=== PATIENT | female | born 1985 | race Caucasian/White ===

== ENCOUNTER 2017-03-27 11:01 | Emergency (ER) | payer OTHER ==
[~2017-03-27] VITALS: Ht 165.1 cm; Wt 64.0 kg
[~2017-03-27 11:01] MED LIST: ALBUAER19 INH; CITA40TA4 PO; CLR10 PO; CTP/1 PO; CYAN10004 PO; DICY10CA12 PO; FLUT220A INH; FLV1 PO; GABA600T PO; METH10SO PO; THIA100T11 PO; VNCS125 PO
[2017-03-27 11:06] VITALS: Ht 165.1 cm; Wt 64.0 kg
[2017-03-27] MEDS ORDERED: VNTHFA/IN INH (11:20)
[2017-03-27] MEDS ORDERED: SNG10 PO (11:22)
[2017-03-27] MEDS ORDERED: TPM100 PO (11:22)
[2017-03-27] MEDS ORDERED: EFF75 PO (11:22)
[2017-03-27] MEDS ORDERED: CYAN10005 PO (11:23)
[2017-03-27] MEDS ORDERED: SODIUM CHLORIDE 0.9% 1000ML 1,000 ML IV STA (11:31)
[2017-03-27] MEDS ORDERED: KETOROLAC TROMETHAMINE 15 MG/ML VIAL IV STA (11:35)
--- NOTE | 2017-03-27 11:42 | EMERGENCY ROOM VISIT NOTE ---
History First contact with patient: 11:23 Chief Complaint: FLANK PAIN Stated Complaint: RIGHT SIDE PAIN History of Present Illness The patient is a 31 year old female who presents to the Emergency Room via private vehicle with complaints of "right-sided pain". The patient states that she woke this morning around 4 AM with abrupt onset of right flank pain. She states she's never had this before, and feels as though she cannot urinate. She rates the pain as an 8-9/10. She took 600 mg of ibuprofen around 7 AM. She denies any chest pain, shortness of breath, fevers, chills, chance of . She denies any dysuria or urinary symptoms. She notes that when she takes a deep breath there is pain in the right flank. Review of Systems A complete 10-point Review of Systems was discussed with the patient, with pertinent positives and negatives listed in the History of Present Illness. All remaining Review of Systems questions can be considered negative unless otherwise specified. 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 (11) MTHFR mutation (12) Tobacco abuse Surgical Problems: (1) H/O breast implant (2) Hx of cholecystectomy Family History Blood clots AUNT PGM Diabetes mellitus MGF PGF FH: cancer FH: lung disease FHx: gallbladder disease Social History Smoking Status: Current Every Day Smoker Alcohol Use: heavy Drug Use: heroin, marijuana, other Marital Status: single Housing Status: lives alone Occupation Status: unemployed Current/Historical Medications Scheduled Cyanocobalamin (Vitamin B-12), 1,000 MCG PO DAILY Montelukast Sod (Montelukast Sodium), 10 MG PO DAILY Topiramate (Topiramate), 100 MG PO DAILY Venlafaxine Hcl (Effexor), 75 MG PO TID Scheduled PRN Albuterol Hfa (Ventolin Hfa), 2 PUFFS INH QID PRN for SOB/Wheezing Physical Exam Vital Signs Date Time Temp Pulse Resp B/P (MAP) Pulse Ox O2 Delivery O2 Flow Rate FiO2 03/27/17 13:37 36.9 84 18 120/86 98 03/27/17 12:40 84 18 116/74 98 03/27/17 11:06 36.9 102 20 116/80 98 Physical Exam VITAL SIGNS - Vital signs and nursing notes were reviewed. Stable. GENERAL -31-year-old female appearing her stated age who is in no acute distress. Communicates well with provider and answers questions appropriately. SKIN - Without rashes. No petechial rashes. HEAD - NC/AT. LUNGS - Chest wall symmetric without accessory muscle use, intercostals retractions, or central cyanosis. Normal vesicular breath sounds CTA B/L. No wheezes, rales, or rhonchi appreciated. CARDIAC - RRR with S1/S2. No murmur, rubs, or gallops appreciated. ABDOMEN - Abdominal contour normal without pulsations or visible masses. BS normoactive all four quadrants. No tenderness, palpable masses, hepatosplenomegaly, or ascites noted. There is right CVA tenderness. Medical Decision & Procedures ER Provider Diagnostic Interpretation: ABD/PELVIS WITHOUT FOR STONE CLINICAL HISTORY: 31 years-old Female presenting with R flank pain, cannot void, no history of renal calculi, no hematuria. TECHNIQUE: Multidetector CT of the abdomen and pelvis was performed without the use of intravenous contrast. IV contrast: None. A dose lowering technique was used consistent with the principles of ALARA (as low as reasonably achievable). COMPARISON: 07/09/2015. CT DOSE (mGy.cm): The estimated cumulative dose is 621.76 mGycm. 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 Lung bases: Stable solid 5 mm nodule at the right lung base. Stable solid subpleural 7 mm nodule in the left lower lobe. No new pulmonary nodule. Normal heart size. No pericardial or pleural effusion. Liver: Normal morphology. Density consistent with hepatic steatosis. Biliary: No gross biliary ductal dilatation allowing for noncontrast technique. Gallbladder surgically absent. Pancreas: Normal noncontrast appearance. Spleen: Top normal in size. Adrenal glands: Normal noncontrast appearance. Kidneys and ureters: No nephrolithiasis. No hydronephrosis. Evaluation of the ureters is limited given the possibility of intra-abdominal fat. Bladder: Incompletely evaluated secondary to underdistention. Pelvic organs: An intrauterine device is in place. Normal noncontrast appearance of the ovaries. Bowel: Normal appendix. No bowel obstruction. Overall limited evaluation given the absence of oral and intravenous contrast. Peritoneal cavity: No free fluid or intraperitoneal gas. Lymph nodes: No gross lymphadenopathy allowing for noncontrast technique. Vasculature: Normal noncontrast appearance. Abdominal wall: Normal. Musculoskeletal: Normal. IMPRESSION: 1. Hepatic steatosis. Correlate with liver function tests exclude steatohepatitis. 2. No nephrolithiasis. 3. No appendicitis. Electronically signed by: Ramiro Mensah M.D. 03/27/2017 12:45 PM Dictated Date/Time: 03/27/2017 12:39 PM Laboratory Results 03/27/17 11:47 Red Blood Count 3.93, Mean Corpuscular Volume 96.9, Mean Corpuscular Hemoglobin 33.3, Mean Corpuscular Hemoglobin Concent 34.4, Mean Platelet Volume 11.8, Neutrophils (%) (Auto) 65.8, Lymphocytes (%) (Auto) 26.5, Monocytes (%) (Auto) 6.1, Eosinophils (%) (Auto) 0.9, Basophils (%) (Auto) 0.5, Neutrophils # (Auto) 4.20, Lymphocytes # (Auto) 1.69, Monocytes # (Auto) 0.39, Eosinophils # (Auto) 0.06, Basophils # (Auto) 0.03 03/27/17 11:47 Test 03/27/17 11:30 03/27/17 11:47 Urine Color DK YELLOW Urine Appearance CLOUDY (CLEAR) Urine pH 8.0 (4.5-7.5) Urine Specific [place] 1.027 (1.000-1.030) Urine Protein NEG (NEG) Urine Glucose (UA) NEG (NEG) Urine Ketones TRACE (NEG) Urine Occult Blood NEG (NEG) Urine Nitrite NEG (NEG) Urine Bilirubin NEG (NEG) Urine Urobilinogen NEG (NEG) Urine Leukocyte Esterase TRACE (NEG) Urine WBC (Auto) 1-5 /hpf (0-5) Urine RBC (Auto) 0-4 /hpf (0-4) Urine Hyaline Casts (Auto) 5-10 /lpf (0-5) Urine Epithelial Cells (Auto) >30 /lpf (0-5) Urine Bacteria (Auto) NEG (NEG) Urine Test NEG (NEG) White Blood Count 6.38 K/uL (4.8-10.8) Red Blood Count 3.93 M/uL (4.2-5.4) Hemoglobin 13.1 g/dL (12.0-16.0) Hematocrit 38.1 % (37-47) Mean Corpuscular Volume 96.9 fL (80-100) Mean Corpuscular Hemoglobin 33.3 pg (25-34) Mean Corpuscular Hemoglobin Concent 34.4 g/dl (32-36) Platelet Count 128 K/uL (130-400) Mean Platelet Volume 11.8 fL (7.4-10.4) Neutrophils (%) (Auto) 65.8 % Lymphocytes (%) (Auto) 26.5 % Monocytes (%) (Auto) 6.1 % Eosinophils (%) (Auto) 0.9 % Basophils (%) (Auto) 0.5 % Neutrophils # (Auto) 4.20 K/uL (1.4-6.5) Lymphocytes # (Auto) 1.69 K/uL (1.2-3.4) Monocytes # (Auto) 0.39 K/uL (0.11-0.59) Eosinophils # (Auto) 0.06 K/uL (0-0.5) Basophils # (Auto) 0.03 K/uL (0-0.2) RDW Standard Deviation 53.9 fL (36.4-46.3) RDW Coefficient of Variation 15.2 % (11.5-14.5) Immature Granulocyte % (Auto) 0.2 % Immature Granulocyte # (Auto) 0.01 K/uL (0.00-0.02) Anion Gap 9.0 mmol/L (3-11) Est Creatinine Clear Calc Drug Dose 94.7 ml/min Estimated GFR () 119.5 Estimated GFR (Non- 103.1 BUN/Creatinine Ratio 7.3 (10-20) Calcium Level 8.1 mg/dl (8.5-10.1) Total Bilirubin 0.5 mg/dl (0.2-1) Aspartate Amino Transf (AST/SGOT) 180 U/L (15-37) Alanine Aminotransferase (ALT/SGPT) 173 U/L (12-78) Alkaline Phosphatase 23 U/L (45-117) Total Protein 7.2 gm/dl (6.4-8.2) Albumin 3.5 gm/dl (3.4-5.0) Globulin 3.7 gm/dl (2.5-4.0) Albumin/Globulin Ratio 0.9 (0.9-2) Medications Administered Medications (Trade) Dose Ordered Sig/Viky Route Start Time Stop Time Status Last Admin Dose Admin Sodium Chloride 1,000 ml @ 999 mls/hr Q1H1M STAT IV 03/27/17 11:31 03/27/17 12:31 DC 03/27/17 12:38 999 MLS/HR Ketorolac Tromethamine (Toradol Inj) 15 mg NOW STAT IV 03/27/17 11:35 03/27/17 11:38 DC 03/27/17 12:37 15 MG Medical Decision Patient was seen and evaluated as above. She presents to us today with right flank pain/right posterior back pain and decreased urine output. This is certainly concerning for that of renal calculi, and decision was made to obtain a CT scan of the abdomen and pelvis without IV contrast. Results as above. She did not want any opiates for pain, and oriented had ibuprofen earlier today. I spoke closely with her pharmacist, and decided to give the patient 1 time dose of 15 mg of Toradol. She was informed the results of the CAT scan which showed that she had hepatic steatosis, and her liver function is actually improved. She does have hepatitis C from she notes IV drug use. On reexamination I do suspect that because it is reproducible with palpation that she may be experiencing a right thoracic or lumbar spinous musculature strain. I do not suspect she is experiencing OK or PE. Her vital signs are stable. At this time she appears to be from patient management, and is to follow with her family doctor regarding today's visit. Blood work does not show any concerning findings. Her platelets are slightly low. No concerning leukocytosis. Slight anemia noted. Metabolic workup reveals potassium and calcium low. Her AST and ALTs and alkaline phosphatase were all elevated/alkaline phosphatase low. Urine reveals no evidence of infection. Prevacid test is negative. She notes she feels couple using [id number] medication for her pain. She is to follow with her family doctor. She is to return if worsening. She was educated upon management, educated upon worrisome symptoms in which to return, had desponded faith, and was discharged home in good condition. Case was discussed with the attending physician. In evaluation treatment this patient following differential diagnoses were entertained: Pyelonephritis, renal calculi, hepatic steatosis, infection, muscle strain, among others. Impression Primary Impression: Right flank pain Additional Impression: Hypokalemia Departure Information Dispostion Home / Self-Care Condition GOOD Referrals Parag Burrell M.D. (PCP) Patient Instructions ED Hypocalcemia, Hypokalemia Dc, [facility] Additional Instructions You have been treated in the Emergency Department your right sided flank/back pain. Laboratory results and imaging studies have ruled out any emergent causes for your pain which would warrant admission or surgery. For pain control, you can use the following [id number] medicines (if >12 yo): - Regular strength (200 mg/tab) Advil (ibuprofen) 1-2 tabs every 4-6 hours as needed. Do not exceed a dose of 3200 mg per day. Drink plenty of water and stay well hydrated. As with any trip to the Emergency Department, you should follow-up with your Primary Care Provider from today's visit. Please follow-up regarding the findings as we discussed today Return to the emergency department if your symptoms persist despite treatment plan outlined above or if the following symptoms occur: increased fevers, chills , worsening nausea/vomiting, blood in your stool or urine. Please refer to the attached handout regarding foods high in potassium and calcium as those were found to be low today. Please return with any new/concerning symptoms. Problem Qualifiers
[2017-03-27 11:53] LABS: URINE APPEARANCE CLOUDY (CLEAR); URINE BILIRUBIN NEG (NEG); URINE COLOR DK YELLOW; URINE EPITHELIAL CELL AUTO >30 /lpf (0-5); URINE NITRITE NEG (NEG); URINE SPECIFIC GRAVITY 1.027 (1.000-1.030); UROBILINOGEN NEG (NEG); ZZUR CULT IF INDIC CLEAN CATCH NO
[2017-03-27 12:02] LABS: MANUAL MICROSCOPIC REQUIRED? NO; REVIEW REQ? NO; SULFASALICYLIC ACID NEG (NEG)
[2017-03-27 12:03] LABS: BASO % 0.5 %; BASO ABS # 0.03 K/uL (0-0.2); COMPLETE YES; EOS % 0.9 %; HEMATOCRIT 38.1 % (37-47); IG% 0.2 %; LYMPH % 26.5 %; LYMPH ABS # 1.69 K/uL (1.2-3.4); MEAN CELL VOLUME 96.9 fL (80-100); MEAN CORPUSCULAR HEMOGLOBIN 33.3 pg (25-34); MEAN CORPUSCULAR HGB CONC 34.4 g/dl (32-36); MEAN PLATELET VOLUME 11.8 fL (7.4-10.4); MONO % 6.1 %; NEUT % 65.8 %; PLATELET COUNT 128 K/uL (130-400); RED BLOOD COUNT 3.93 M/uL (4.2-5.4); WHITE BLOOD COUNT 6.38 K/uL (4.8-10.8)
[2017-03-27 12:26] LABS: BUN/CREATININE RATIO 7.3 (10-20); CALCIUM 8.1 mg/dl (8.5-10.1); CREATININE 0.76 mg/dl (0.60-1.20); POTASSIUM 3.1 mmol/L (3.5-5.1)
[2017-03-27 12:29] LABS: ALB/GLOB RATIO 0.9 (0.9-2)
--- NOTE | 2017-03-27 12:47 | DIAGNOSTIC IMAGING REPORT ---
ABD/PELVIS WITHOUT FOR STONE CLINICAL HISTORY: 31 years-old Female presenting with R flank pain, cannot void, no history of renal calculi, no hematuria. TECHNIQUE: Multidetector CT of the abdomen and pelvis was performed without the use of intravenous contrast. IV contrast: None. A dose lowering technique was used consistent with the principles of ALARA (as low as reasonably achievable). COMPARISON: 07/09/2015. CT DOSE (mGy.cm): The estimated cumulative dose is 621.76 mGycm. 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 Lung bases: Stable solid 5 mm nodule at the right lung base. Stable solid subpleural 7 mm nodule in the left lower lobe. No new pulmonary nodule. Normal heart size. No pericardial or pleural effusion. Liver: Normal morphology. Density consistent with hepatic steatosis. Biliary: No gross biliary ductal dilatation allowing for noncontrast technique. Gallbladder surgically absent. Pancreas: Normal noncontrast appearance. Spleen: Top normal in size. Adrenal glands: Normal noncontrast appearance. Kidneys and ureters: No nephrolithiasis. No hydronephrosis. Evaluation of the ureters is limited given the possibility of intra-abdominal fat. Bladder: Incompletely evaluated secondary to underdistention. Pelvic organs: An intrauterine device is in place. Normal noncontrast appearance of the ovaries. Bowel: Normal appendix. No bowel obstruction. Overall limited evaluation given the absence of oral and intravenous contrast. Peritoneal cavity: No free fluid or intraperitoneal gas. Lymph nodes: No gross lymphadenopathy allowing for noncontrast technique. Vasculature: Normal noncontrast appearance. Abdominal wall: Normal. Musculoskeletal: Normal. IMPRESSION: 1. Hepatic steatosis. Correlate with liver function tests exclude steatohepatitis. 2. No nephrolithiasis. 3. No appendicitis. Electronically signed by: Ramiro Mensah M.D. 03/27/2017 12:45 PM Dictated Date/Time: 03/27/2017 12:39 PM
[2017-03-27 13:37] VITALS: BP 120/86; PULSE 84; TEMP 36.9; O2SAT 98
== END 2017-03-27 13:38 | disposition home or self-care (01) ==
LOC: C.EDB 11:02 → C.EDC 13:38
DX: R10.9 Unspecified abdominal pain (principal); E87.6 Hypokalemia; F90.9 Attention-deficit hyperactivity disorder, unspecified type; F10.10 Alcohol abuse, uncomplicated; F31.9 Bipolar disorder, unspecified; F11.10 Opioid abuse, uncomplicated; Z86.718 Personal history of other venous thrombosis and embolism; F12.10 Cannabis abuse, uncomplicated; Z83.3 Family history of diabetes mellitus; Z80.9 Family history of malignant neoplasm, unspecified; Z83.6 Family history of other diseases of the respiratory system; Z83.79 Family history of other diseases of the digestive system; F17.210 Nicotine dependence, cigarettes, uncomplicated; Z79.899 Other long term (current) drug therapy

== ENCOUNTER 2017-09-13 09:04 | Inpatient (IN) | payer OTHER ==
[~2017-09-13] VITALS: Ht 165.1 cm; Wt 69.0 kg
[2017-09-13] MEDS ORDERED: DOXE50CA3 PO (09:36)
[2017-09-13] MEDS ORDERED: PANT40TA PO (09:36)
[2017-09-13] MEDS ORDERED: MULTI-VITAMIN INFUSION INJ 10 ML, THIAMINE HCL INJ 100 MG, FoLIC ACID INJ 1 MG in SODIU... IV ONE (09:45)
[2017-09-13 10:02] LABS: PTT PATIENT 21.7 SECONDS (21.0-31.0)
[2017-09-13 10:03] LABS: ALBUMIN 3.8 gm/dl (3.4-5.0); CALCIUM 8.1 mg/dl (8.5-10.1); CREATININE 0.87 mg/dl (0.60-1.20); POTASSIUM 3.1 mmol/L (3.5-5.1)
[2017-09-13 10:12] LABS: HEMATOCRIT 40.6 % (37-47); HEMOGLOBIN 13.7 g/dL (12.0-16.0); MEAN CELL VOLUME 98.5 fL (80-100); MEAN CORPUSCULAR HEMOGLOBIN 33.3 pg (25-34); MEAN CORPUSCULAR HGB CONC 33.7 g/dl (32-36); PLATELET COUNT 72 K/uL (130-400); RED CELL DISTRIBUTION WIDTH CV 14.4 % (11.5-14.5); RED CELL DISTRIBUTION WIDTH SD 51.2 fL (36.4-46.3); WHITE BLOOD COUNT 3.32 K/uL (4.8-10.8)
[2017-09-13 10:13] LABS: BASO % 0.6 %; BASO ABS # 0.02 K/uL (0-0.2); EOS % 2.1 %; EOS ABS # 0.07 K/uL (0-0.5); IG# 0.01 K/uL (0.00-0.02); LYMPH % 60.5 %; LYMPH ABS # 2.01 K/uL (1.2-3.4); MONO % 4.2 %; MONO ABS # 0.14 K/uL (0.11-0.59); NEUT % 32.3 %; NEUT ABS # 1.07 K/uL (1.4-6.5)
[2017-09-13] MEDS ORDERED: SODIUM CHLORIDE 0.9% 1000ML 1,000 ML IV STA ×2 (10:44→13:18)
[2017-09-13] MEDS ORDERED: POTASSIUM CHLORIDE 10 MEQ TABCR PO STA (10:44)
[2017-09-13] MEDS ORDERED: CHLORDIAZEPOXIDE 25 MG CAP PO ONE ×2 (10:45→12:45)
--- NOTE | 2017-09-13 11:17 | DIAGNOSTIC IMAGING REPORT ---
HEAD WITHOUT CONTRAST (CT) CT DOSE: 638.56 mGycm HISTORY: Mental status change eval for bleed TECHNIQUE: Multiaxial CT images of the head were performed without the use of intravenous contrast. A dose lowering technique was utilized adhering to the principles of ALARA. Comparison: None. Findings: The paranasal sinuses and mastoid air cells are clear. The calvarium and skull base are intact. The ventricles and sulci are within normal limits. There is no mass, hematoma, midline shift, or acute infarct. Impression: No acute intracranial abnormality. The above report was generated using voice recognition software. It may contain grammatical, syntax or spelling errors. Electronically signed by: Eric Muñoz M.D. 09/13/2017 11:15 AM Dictated Date/Time: 09/13/2017 11:04 AM
[2017-09-13] MEDS ORDERED: VNTHFA/IN INH (11:20)
[2017-09-13] MEDS ORDERED: SNG10 PO (11:22)
[2017-09-13] MEDS ORDERED: EFF75 PO (11:22)
[2017-09-13] MEDS ORDERED: TPM100 PO (11:22)
[2017-09-13] MEDS ORDERED: CYAN10005 PO (11:23)
[2017-09-13] MEDS ORDERED: IBUPROFEN 200 MG TAB PO STA (11:25)
--- NOTE | 2017-09-13 12:02 | DIAGNOSTIC IMAGING REPORT ---
CHEST 2 VIEWS ROUTINE CLINICAL HISTORY: Dizziness, syncope. COMPARISON STUDY: 08/17/2015 FINDINGS: The cardiac and mediastinal contours are normal. There is no evidence of focal pulmonary consolidation. There is no evidence of failure. No pleural effusions are visualized.[ IMPRESSION: No active disease in the chest. Electronically signed by: Mynor Sharma M.D. 09/13/2017 12:01 PM Dictated Date/Time: 09/13/2017 12:00 PM
[2017-09-13] MEDS ORDERED: LORAZEPAM 2 MG/ML 1 ML VIAL IV STA (12:47)
[2017-09-13] MEDS ORDERED: LORAZEPAM 2 MG/ML 1 ML VIAL ONE (12:48)
[2017-09-13] MEDS ORDERED: GABAPENTIN 600 MG TAB PO SCH (14:15)
[2017-09-13] MEDS ORDERED: MAGNESIUM HYDROXIDE SUSP 30 ML UDC PO PRN (14:15)
[2017-09-13] MEDS ORDERED: LORAZEPAM 1 MG TAB PO PRN (14:15)
[2017-09-13] MEDS ORDERED: ONDANSETRON INJ 2 MG/ML 2 ML VIAL IV PRN (14:15)
[2017-09-13] MEDS ORDERED: POTASSIUM CHLORIDE 20 MEQ TABCR PO STA (14:19)
[2017-09-13] MEDS ORDERED: FLV1 PO (14:27)
[2017-09-13] MEDS ORDERED: ALBUTEROL HFA 8 GM INHALER INH PRN (14:30)
[2017-09-13] MEDS ORDERED: GABAPENTIN 600 MG TAB PO ONE (15:00)
--- NOTE | 2017-09-13 15:25 | History and Physical ---
History & Physical Date & Time of Service: Sep 13, 2017 at 14:29 Chief Complaint: Dizzy,Near Syncope Primary Care Physician: No Doctor, Assigned History of Present Illness Source: patient, clinic records, hospital records Pt is 31 y/o F with PMH alcoholism, bipolar, ADHD, hepatitis C, MTHFR mutation, asthma presented to ER with chief complaint of near syncopal event. Patient reports this morning came inside after smoking a cigarette when she felt very lightheaded and felt like she is going to pass out and states fell to her knees. Denies hitting head or complete LOC. Had not eaten breakfast yet. Denies hx syncope in past. Last ETOH drink midnight. Reports tremors since this morning. Since in ER reports generalized MONTOYA. Patient reports drinking fifth of vodka daily for the past 3-4 weeks, previously was drinking a pint/day. Patient reports history of multiple times in the past quitting including rehab in April and attempted self detox the end of July with Librium for 3-4 days and naltrexone however only took naltrexone for approximately 2 days and stopped. Patient reports history of seizures with alcohol withdrawal in the past. Patient reports has not been taking her Effexor or Topamax secondary to "drinking too much". She denies any jose symptoms and denies any suicidal ideations. Patient would like to restart medications. Patient reports history of fatty liver. Patient denies any current drug use, reports being clean for the past 5 years was previous IV drug user. Patient smokes half to 1 pack cigarettes daily for approximately 20 years. Denies recent illness. Denies fever /chills, diaphoresis, N/V/D/C, vision changes, neck pain, CP, SOB, orthopnea, palpitations, cough, sore throat, choking, otalgia, rhinorrhea, abdominal pain, paresthesias, extremity edema, rashes, urinary symptoms. 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 (11) MTHFR mutation Status: Chronic (12) Tobacco abuse Status: Chronic Surgical Problems: (1) H/O breast implant Status: Chronic (2) History of use of contraceptive intrauterine device (IUD) Permanent Comment: Paragard - inserted 04/08/2015 Status: Resolved (3) Hx of cholecystectomy Status: Chronic Family History Blood clots AUNT PGM Diabetes mellitus MGF PGF FH: cancer FH: lung disease FHx: gallbladder disease Social History Smoking Status: Current Every Day Smoker (0.5-1ppd x 20 years) Smokeless Tobacco Use: No Alcohol Use: fifth vodka daily Drug Use: heroin (hx use, denies use for past 5 years), marijuana (hx use, denies use for past 5 years) Marital Status: single Housing status: other (Living at [facility] [place] currently) Occupational Status: unemployed Allergies Coded Allergies: Metoclopramide (Verified Adverse Reaction, Intermediate, RASH, 09/13/17) Home Medications Scheduled Cyanocobalamin (Vitamin B-12), 1,000 MCG PO DAILY Doxepin (Sinequan), 50 MG PO HS Folic Acid (Folic Acid), 1 TAB PO DAILY Montelukast Sod (Montelukast Sodium), 10 MG PO DAILY Pantoprazole (Protonix), 40 MG PO DAILY Topiramate (Topiramate), 100 MG PO DAILY Venlafaxine Hcl (Effexor), 75 MG PO TID Scheduled PRN Albuterol Hfa (Ventolin Hfa), 2 PUFFS INH QID PRN for SOB/Wheezing Review of Systems See HPI for pertinent positives & negatives. All other systems reviewed and were otherwise negative Physical Exam Vital Signs Date Time Temp Pulse Resp B/P (MAP) Pulse Ox O2 Delivery O2 Flow Rate FiO2 09/13/17 13:05 99 110/70 97 Room Air 09/13/17 13:04 95 09/13/17 13:01 114 77/56 99 Room Air 09/13/17 12:13 09/13/17 12:08 73 118/63 88 125/58 94 107/65 09/13/17 11:28 84 14 102/61 94 Room Air 09/13/17 10:16 82 18 109/68 97 Room Air 09/13/17 09:30 98 09/13/17 09:25 82 16 108/69 97 Room Air 09/13/17 09:24 98 Room Air 09/13/17 09:16 36.7 75 18 60/39 96 Room Air General Appearance: WD/WN, no apparent distress, + pertinent finding (appears older than stated age) Head: normocephalic, atraumatic Eyes: normal inspection, PERRL, EOMI, sclerae normal ENT: hearing grossly normal, pharynx normal, + pertinent finding (mucous membranes dry. tongue without lacerations) Neck: supple, trachea midline Respiratory/Chest: normal breath sounds, no respiratory distress, + pertinent finding (coarse breath sounds, no wheezing or rhonchi) Cardiovascular: regular rate, rhythm (rate high 90's), no murmur, normal peripheral pulses Abdomen/GI: normal bowel sounds, non tender, soft Extremities/Musculoskelatal: no calf tenderness, normal capillary refill, no pedal edema, normal range of motion, non-tender Neurologic/Psych: alert, normal mood/affect, oriented x 3, + pertinent finding (+tremors noted) Skin: normal color, warm/dry Diagnostics Laboratory Results Results Past 24 Hours Test 09/13/17 09:25 09/13/17 09:44 09/13/17 09:51 09/13/17 10:00 Range/Units White Blood Count 3.32 4.8-10.8 K/uL Red Blood Count 4.12 4.2-5.4 M/uL Hemoglobin 13.7 12.0-16.0 g/dL Hematocrit 40.6 37-47 % Mean Corpuscular Volume 98.5 80-100 fL Mean Corpuscular Hemoglobin 33.3 25-34 pg Mean Corpuscular Hemoglobin Concent 33.7 32-36 g/dl Platelet Count 72 130-400 K/uL Mean Platelet Volume 11.0 7.4-10.4 fL Neutrophils (%) (Auto) 32.3 % Lymphocytes (%) (Auto) 60.5 % Monocytes (%) (Auto) 4.2 % Eosinophils (%) (Auto) 2.1 % Basophils (%) (Auto) 0.6 % Neutrophils # (Auto) 1.07 1.4-6.5 K/uL Lymphocytes # (Auto) 2.01 1.2-3.4 K/uL Monocytes # (Auto) 0.14 0.11-0.59 K/uL Eosinophils # (Auto) 0.07 0-0.5 K/uL Basophils # (Auto) 0.02 0-0.2 K/uL RDW Standard Deviation 51.2 36.4-46.3 fL RDW Coefficient of Variation 14.4 11.5-14.5 % Immature Granulocyte % (Auto) 0.3 % Immature Granulocyte # (Auto) 0.01 0.00-0.02 K/uL Platelet Estimate DECREASED Prothrombin Time 10.6 9.0-12.0 SECONDS Prothromb Time International Ratio 1.0 0.9-1.1 Activated Partial Thromboplast Time 21.7 21.0-31.0 SECONDS Partial Thromboplastin Ratio 0.8 Sodium Level 141 136-145 mmol/L Potassium Level 3.1 3.5-5.1 mmol/L Chloride Level 108 98-107 mmol/L Carbon Dioxide Level 26 21-32 mmol/L Anion Gap 7.0 3-11 mmol/L Blood Urea Nitrogen 12 7-18 mg/dl Creatinine 0.87 0.60-1.20 mg/dl Est Creatinine Clear Calc Drug Dose 82.8 ml/min Estimated GFR () 101.4 Estimated GFR (Non- 87.5 BUN/Creatinine Ratio 13.5 10-20 Random Glucose 80 70-99 mg/dl Calcium Level 8.1 8.5-10.1 mg/dl Magnesium Level 1.8 1.8-2.4 mg/dl Total Bilirubin 0.8 0.2-1 mg/dl Direct Bilirubin 0.2 0-0.2 mg/dl Aspartate Amino Transf (AST/SGOT) 377 15-37 U/L Alanine Aminotransferase (ALT/SGPT) 285 12-78 U/L Alkaline Phosphatase 39 45-117 U/L Total Protein 8.0 6.4-8.2 gm/dl Albumin 3.8 3.4-5.0 gm/dl Thyroid Stimulating Hormone (TSH) 1.670 0.300-4.500 uIu/ml Bedside Troponin I < 0.030 0-0.045 ng/ml Urine Color YELLOW Urine Appearance CLOUDY CLEAR Urine pH 6.5 4.5-7.5 Urine Specific [place] 1.023 1.000-1.030 Urine Protein TRACE NEG Urine Glucose (UA) NEG NEG Urine Ketones NEG NEG Urine Occult Blood NEG NEG Urine Nitrite NEG NEG Urine Bilirubin NEG NEG Urine Urobilinogen NEG NEG Urine Leukocyte Esterase NEG NEG Urine WBC (Auto) 1-5 0-5 /hpf Urine RBC (Auto) 0-4 0-4 /hpf Urine Hyaline Casts (Auto) 1-5 0-5 /lpf Urine Epithelial Cells (Auto) >30 0-5 /lpf Urine Bacteria (Auto) 1+ NEG Urine Mucus PRESENT NONE PRSENT Urine Test NEG NEG Test 09/13/17 10:09 09/13/17 14:23 Range/Units Ethyl Alcohol mg/dL 145.2 0-3 mg/dl Diagnostic Radiology CXR: IMPRESSION: No active disease in the chest. CT HEAD: Impression: No acute intracranial abnormality. EKG EKG: NSR, rate 90 Impression Assessment and Plan In the ER patient initially hypotensive 60/39. Was given 1 L NSS and BP up to 108/69. Patient also received a banana bag. ER nurse reports noticing patient with tremors and Librium given, the nurse noted increased tremors and Ativan given, then nurse suspected seizure activity and reports patient is not responding and noticed increased shaking. Patient reports that she felt very cold and felt like she had increased tremors that she could not control and reports has "foggy" memories of this event. No loss control of bowels or bladder, no tongue lacerations. Patient hypotensive at that time at 77/56 and an additional 1L NSS given. NEAR SYNCOPE Pt with lightheaded and near syncopal event this morning. Suspect pt had orthostatic hypotension, was hypotensive upon ER arrival. Pt given total 3L IVF in ER with BP from 60/39 up to 110/70 and pulse in high 90's. Negative CT head. EKG: NSR. TSH: 1.6. WBC: 3.3 -monitor -IVF ALCOHOL WITHDRAWAL ETOH level: 147 in ER. Last drink midnight. Pt with tremors and ?seizure activity reported by ER staff. Was given Librium and Ativan. Since pt with decreased tremors and reports feeling better. Pt alert and oriented. -tele, monitor closely -ETOH withdrawal protocol with Gabapentin and Ativan -seizure precautions -aspiration precautions -banana bag tomorrow, then thiamine, folic acid, multivitamin daily -monitor liver profile, electrolytes, cbc HYPOKALEMIA K: 3.1 -40meq K po, D5W 1/2 NSS+20meq K -monitor electrolytes ELEVATED LIVER FUNCTIONS Hx HEPATITIS C ALT: 377 (baseline ~361), AST: 285 (baseline ~228). Alk phos: 39. Hx Abd CT on 03/2017 - hepatic steatosis -liver function in am THROMBOCYTOPENIA Plt: 72. no active bleeding -monitor CBC HX IV DRUG ABUSE Pt reports being clean for past 5 years -urine tox screen ordered HX TOBACCO ABUSE -nicotine patch -smoking cessation education BIPOLAR DISORDER/ADHD Pt has not been using her Effexor or Topamax the past month. Pt would like to restart. -mental health consult -effexor, topamax ASTHMA No fever, cough, or wheezing -continue albuterol inhaler prn DVT Prophylaxis -SCDs Disposition admit tele Full Code Follows with Dr Burrell for routine care Social Service Consult Pt was seen with Dr Eisenberg. See addendum Attending Note: Patient is a 31 yr female with Chronic Alcoholism, Prior history of Drug abuse and other problems presents with history of Near syncope, severe lightheadedness , generalized headache, tremor, tingling sensation in hands and feet and states she is unable to quit drinking alcohol and has been to Alcohol rehab previously. She admits to not taking her usual medications since at least 1 month and drinks at least a 5th of Vodka on a daily basis. Reports H/O seizures and DTs from alcohol withdrawal in the past. Also reports that her adopted child has been taken away from her which contributes to her drinking. Denies any recent Drug abuse. Physical Exam: Vitals signs as noted above General Appearance:Moderately built and nourished, mild distress, + tremor Head: normocephalic, Atraumatic Eyes: normal inspection, EOMI, PERRL Neck: supple, Trachea midline Respiratory/Chest: Coarse breath sounds, CTA Cardiovascular: S1, S2, No murmur, = Tachycardia Abdomen/GI:Soft, Non tender, Bowel sounds present Extremities/Musculoskelatal:normal inspection, no edema Neurologic/Psych:AAOX3, grossly no focal neurological deficits, + Tremor Skin:normal color,warm Assessment and Plan: Near Syncope Likely Orthostatic Hypotension CT head: No acute intracranial findings Monitor in Telemetry for arrhythmia Check Orthostatics Continue IV fluids consider ECHO if clinically needed Alcohol Withdrawal Alcohol levels:145 Continue Alcohol withdrawal protocol Thiamine, Folic acid Psychiatry consulted given H/O Alcohol abuse, Prior H/O Drug abuse, Bipolar, ADHD Tox Screen is pending Needs rehab placement Hypokalemia: Replace and monitor I personally reviewed the record. Patient is interviewed and examined at bedside. Patient's care is coordinated with Erika Cisneros PA-C. Please refer to the documentation above for details of patient's presentation and for discussion of other issues. Resuscitation Status Full Code VTE Prophylaxis Will order VTE Prophylaxis: Yes Additional Copies To Parag Burrell M.D.
[2017-09-13 15:42] VITALS: BP 101/83; PULSE 95; TEMP 36.9; O2SAT 98; Ht 165.1 cm; Wt 69.0 kg
--- NOTE | 2017-09-13 15:51 | EMERGENCY ROOM VISIT NOTE ---
History Report prepared by Jessica: Cj Bloom Under the Supervision of: Dr. Leo Fitzpatrick M.D. First contact with patient: 09:35 Chief Complaint: DIZZY Stated Complaint: DIZZY,NEAR SYNCOPE Nursing Triage Summary: Patient ambulatory to triage. Patient smells of alcohol. "I don't know if I just passed out or what" My hands are numb. "My hands cramped up really bad and stayed stuck" History of Present Illness The patient is a 31 year old female who presents to the Emergency Room with complaints of a near syncopal episode occurring shortly prior to arrival. She states that she was walking back inside after having a cigarette when her episode occurred. She states that she felt very lightheaded before she "collapsed" to her knees. The patient denies passing out, or losing consciousness. She fell to her knees, and then sat on her back side. She did not hit her head on the fall. The patient states that she noticed her hands "cramping" at this point. She currently complains of a headache and nausea. The patient has a history of alcoholism and states that she drank a fifth of vodka last night (which is about as much as she normally drinks each day). She states that she has not had any alcohol today. She feels that she could be going through alcohol withdrawal right now. The patient denies chest pain, fevers, abdominal pain, diarrhea, or vomiting. She denies chance of . She does not normally get headaches. Source of History: patient Onset: Shortly prior to arrival Position: other (Global) Quality: other (near-syncope) Timing: other (episode) Associated Symptoms: + headache, + nausea, No LOC, No fevers, No chest pain , No vomiting, No diarrhea Note: Additional symptoms: hand "cramping" after the episode, lightheadedness before the episode. Review of Systems See HPI for pertinent positives & negatives. A total of 10 systems reviewed and were otherwise negative. 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 (12) MTHFR mutation (13) Near syncope (14) Tobacco abuse Surgical Problems: (1) H/O breast implant (2) History of use of contraceptive intrauterine device (IUD) (3) Hx of cholecystectomy Family History Blood clots AUNT PGM Diabetes mellitus MGF PGF FH: cancer FH: lung disease FHx: gallbladder disease Social History Smoking Status: Current Every Day Smoker Alcohol Use: heavy Drug Use: heroin, marijuana, other Marital Status: single Housing Status: lives alone Occupation Status: unemployed Current/Historical Medications Scheduled Cyanocobalamin (Vitamin B-12), 1,000 MCG PO DAILY Doxepin (Sinequan), 50 MG PO HS Folic Acid (Folic Acid), 1 TAB PO DAILY Montelukast Sod (Montelukast Sodium), 10 MG PO DAILY Pantoprazole (Protonix), 40 MG PO DAILY Topiramate (Topiramate), 100 MG PO DAILY Venlafaxine Hcl (Effexor), 75 MG PO TID Scheduled PRN Albuterol Hfa (Ventolin Hfa), 2 PUFFS INH QID PRN for SOB/Wheezing Allergies Coded Allergies: Metoclopramide (Verified Adverse Reaction, Intermediate, RASH, 09/13/17) Physical Exam Vital Signs Date Time Temp Pulse Resp B/P (MAP) Pulse Ox O2 Delivery O2 Flow Rate FiO2 09/13/17 15:05 98 24 09/13/17 15:01 111/78 09/13/17 14:50 95 18 09/13/17 14:46 111/60 09/13/17 14:35 100 22 09/13/17 14:20 93 16 09/13/17 14:15 110/71 09/13/17 14:05 97 16 09/13/17 14:01 117/64 09/13/17 13:50 115 20 09/13/17 13:45 116/70 09/13/17 13:35 97 16 09/13/17 13:30 111/74 09/13/17 13:20 98 18 98 09/13/17 13:05 99 110/70 97 Room Air 09/13/17 13:04 95 09/13/17 13:01 114 77/56 99 Room Air 09/13/17 12:13 09/13/17 12:08 73 118/63 88 125/58 94 107/65 09/13/17 11:28 84 14 102/61 94 Room Air 09/13/17 10:16 82 18 109/68 97 Room Air 09/13/17 09:30 98 09/13/17 09:25 82 16 108/69 97 Room Air 09/13/17 09:24 98 Room Air 09/13/17 09:16 36.7 75 18 60/39 96 Room Air Physical Exam Constitutional: Vital signs reviewed. Eyes: Pupils are equal round reactive to light. Conjunctiva are noninjected. ENT: Pharynx is clear without erythema or exudate. Mucous membranes are dry. Neck supple without meningeal signs. Respiratory: Clear to auscultation bilaterally. Breath sounds are equal bilaterally. Cardiovascular: Regular rate and rhythm. No rubs or gallops. GI: Soft, nondistended and nontender. Bowel sounds are present. Musculoskeletal: No peripheral edema. No lower extremity tenderness. Integumentary: No cyanosis. Neurological: The patient is awake and alert. Cranial nerves II-XII are intact. Motor is 5 out of 5 all extremities. Sensation is intact to light touch all extremities. Normal speech. No pronator drift. Tremors noted. No asterixis. Psychiatric: Slightly anxious. Medical Decision & Procedures ER Provider Diagnostic Interpretation: Radiology results as stated below per my review and the radiologist's interpretation: HEAD WITHOUT CONTRAST (CT) Findings: The paranasal sinuses and mastoid air cells are clear. The calvarium and skull base are intact. The ventricles and sulci are within normal limits. There is no mass, hematoma, midline shift, or acute infarct. Impression: No acute intracranial abnormality. The above report was generated using voice recognition software. It may contain grammatical, syntax or spelling errors. Electronically signed by: Eric Muñoz M.D. 09/13/2017 11:15 AM CHEST 2 VIEWS ROUTINE FINDINGS: The cardiac and mediastinal contours are normal. There is no evidence of focal pulmonary consolidation. There is no evidence of failure. No pleural effusions are visualized.[ IMPRESSION: No active disease in the chest. Electronically signed by: Mynor Sharma M.D. 09/13/2017 12:01 PM Laboratory Results 09/13/17 09:25 Red Blood Count 4.12, Mean Corpuscular Volume 98.5, Mean Corpuscular Hemoglobin 33.3, Mean Corpuscular Hemoglobin Concent 33.7, Mean Platelet Volume 11.0, Neutrophils (%) (Auto) 32.3, Lymphocytes (%) (Auto) 60.5, Monocytes (%) (Auto) 4.2, Eosinophils (%) (Auto) 2.1, Basophils (%) (Auto) 0.6, Neutrophils # (Auto) 1.07, Lymphocytes # (Auto) 2.01, Monocytes # (Auto) 0.14, Eosinophils # (Auto) 0.07, Basophils # (Auto) 0.02 09/13/17 09:25 Test 09/13/17 09:25 09/13/17 09:51 09/13/17 10:00 09/13/17 10:09 White Blood Count 3.32 K/uL (4.8-10.8) Red Blood Count 4.12 M/uL (4.2-5.4) Hemoglobin 13.7 g/dL (12.0-16.0) Hematocrit 40.6 % (37-47) Mean Corpuscular Volume 98.5 fL (80-100) Mean Corpuscular Hemoglobin 33.3 pg (25-34) Mean Corpuscular Hemoglobin Concent 33.7 g/dl (32-36) Platelet Count 72 K/uL (130-400) Mean Platelet Volume 11.0 fL (7.4-10.4) Neutrophils (%) (Auto) 32.3 % Lymphocytes (%) (Auto) 60.5 % Monocytes (%) (Auto) 4.2 % Eosinophils (%) (Auto) 2.1 % Basophils (%) (Auto) 0.6 % Neutrophils # (Auto) 1.07 K/uL (1.4-6.5) Lymphocytes # (Auto) 2.01 K/uL (1.2-3.4) Monocytes # (Auto) 0.14 K/uL (0.11-0.59) Eosinophils # (Auto) 0.07 K/uL (0-0.5) Basophils # (Auto) 0.02 K/uL (0-0.2) RDW Standard Deviation 51.2 fL (36.4-46.3) RDW Coefficient of Variation 14.4 % (11.5-14.5) Immature Granulocyte % (Auto) 0.3 % Immature Granulocyte # (Auto) 0.01 K/uL (0.00-0.02) Platelet Estimate DECREASED Prothrombin Time 10.6 SECONDS (9.0-12.0) Prothromb Time International Ratio 1.0 (0.9-1.1) Activated Partial Thromboplast Time 21.7 SECONDS (21.0-31.0) Partial Thromboplastin Ratio 0.8 Anion Gap 7.0 mmol/L (3-11) Est Creatinine Clear Calc Drug Dose 82.8 ml/min Estimated GFR () 101.4 Estimated GFR (Non- 87.5 BUN/Creatinine Ratio 13.5 (10-20) Calcium Level 8.1 mg/dl (8.5-10.1) Magnesium Level 1.8 mg/dl (1.8-2.4) Total Bilirubin 0.8 mg/dl (0.2-1) Direct Bilirubin 0.2 mg/dl (0-0.2) Aspartate Amino Transf (AST/SGOT) 377 U/L (15-37) Alanine Aminotransferase (ALT/SGPT) 285 U/L (12-78) Alkaline Phosphatase 39 U/L (45-117) Total Protein 8.0 gm/dl (6.4-8.2) Albumin 3.8 gm/dl (3.4-5.0) Thyroid Stimulating Hormone (TSH) 1.670 uIu/ml (0.300-4.500) Bedside Troponin I < 0.030 ng/ml (0-0.045) Urine Color YELLOW Urine Appearance CLOUDY (CLEAR) Urine pH 6.5 (4.5-7.5) Urine Specific [place] 1.023 (1.000-1.030) Urine Protein TRACE (NEG) Urine Glucose (UA) NEG (NEG) Urine Ketones NEG (NEG) Urine Occult Blood NEG (NEG) Urine Nitrite NEG (NEG) Urine Bilirubin NEG (NEG) Urine Urobilinogen NEG (NEG) Urine Leukocyte Esterase NEG (NEG) Urine WBC (Auto) 1-5 /hpf (0-5) Urine RBC (Auto) 0-4 /hpf (0-4) Urine Hyaline Casts (Auto) 1-5 /lpf (0-5) Urine Epithelial Cells (Auto) >30 /lpf (0-5) Urine Bacteria (Auto) 1+ (NEG) Urine Mucus PRESENT (NONE PRSENT) Urine Test NEG (NEG) Bedside Urine Test NEG (NEG) Urine Opiates Screen NEG (NEG) Urine Methadone, Qualitative NEG (NEG) Urine Barbiturates NEG (NEG) Urine Phencyclidine (PCP) Level NEG (NEG) Ur Amphetamine/Methamphetamine NEG (NEG) MDMA (Ecstasy) Screen NEG (NEG) Urine Benzodiazepines Screen POS (NEG) Urine Cocaine Metabolite NEG (NEG) Urine Marijuana (THC) NEG (NEG) Ethyl Alcohol mg/dL 145.2 mg/dl (0-3) Laboratory results as reviewed by me. Medications Administered Medications (Trade) Dose Ordered Sig/Viky Route Start Time Stop Time Status Last Admin Dose Admin Multivitamins 10 ml/Thiamine HCl 100 mg/Folic Acid 1 mg/Sodium Chloride 1,011.2 ml @ 500 mls/ hr Q2H2M ONCE IV 09/13/17 09:45 09/13/17 11:46 DC 09/13/17 10:13 500 MLS/HR Chlordiazepoxide (Librium Cap) 25 mg NOW ONCE PO 09/13/17 10:45 09/13/17 10:46 DC 09/13/17 10:41 25 MG Potassium Chloride (Klor-Con M10) 40 meq NOW STAT PO 09/13/17 10:44 09/13/17 10:45 DC 09/13/17 11:24 40 MEQ Sodium Chloride 1,000 ml @ 999 mls/hr Q1H1M STAT IV 09/13/17 10:44 09/13/17 11:44 DC 09/13/17 11:26 999 MLS/HR Chlordiazepoxide (Librium Cap) 50 mg NOW ONCE PO 09/13/17 12:45 09/13/17 12:46 DC 09/13/17 12:50 50 MG Lorazepam (Ativan Inj) 1 mg NOW STAT IV 09/13/17 12:47 09/13/17 12:48 DC 09/13/17 12:50 1 MG Sodium Chloride 1,000 ml @ 999 mls/hr Q1H1M STAT IV 09/13/17 13:18 09/13/17 14:18 DC 09/13/17 13:10 999 MLS/HR Potassium Chloride (Klor-Con Tab) 40 meq NOW STAT PO 09/13/17 14:19 09/13/17 15:02 DC 09/13/17 15:27 40 MEQ Gabapentin (Neurontin Tab) 1,200 mg 1500 ONCE PO 09/13/17 15:00 09/13/17 15:02 DC 09/13/17 15:27 1,200 MG ECG Per My Interpretation Indication: other (dizziness) Rate (beats per minute): 90 Rhythm: normal sinus Findings: other (No acute ST elevations. No PVCs. ) ED Course 0936: The patient was evaluated in room A2. A complete history and physical exam was performed. 0945: Ordered Multivitamins 10 mL/Thiamine HCl 100 mg/Folic Acid 1 mg/Sodium Chloride 1011.2 ml @ 500 mls/hr IV. 1044: Ordered Sodium Chloride 1000 ml @ 999 mls/hr IV, Klor-Con M10 40 meq PO, Librium Cap 25 mg PO. 1125: I reassessed the patient. She feels better, and has no symptoms other than her headache. Ordered Advil Tab 400 mg PO. 1238: i spoke with the psychiatric case resolution specialist. She states that the patient appears very uncomfortable. A bed search is underway for a rehab center. 1245: I checked in on the patient. Her tremors are worse, and she is tachycardic with a heart rate of 103 bpm. Ordered Librium Cap 50 mg PO, Ativan Inj 1 mg IV. 1300: I was called to the bedside due to the patient having seizure-like activity after receiving Ativan. When I arrived, the patient was arching her back, her hands were shaking, her feet were pointed downward and her eyes were half open. The patient opened eyes and responded to questions. After being asked , the patient was able to move up onto the bed after 1-2 minutes. Her systolic blood pressure is 77. No further Ativan was given. Nurses confirm that the patient received her Librium. 1318: Ordered Sodium Chloride 1000 ml @ 999 mls/hr IV. 1336: Upon reevaluation, the patient is resting. She is shiver from receiving cold IV fluids. Her systolic pressure is 111, and she has had no further seizure -like activity. I discussed tonight's findings with her. She verbalized agreement of the treatment plan. The patient will be evaluated for further management. Medical Decision This is a 31-year-old female presents with a near syncopal episode, headache and carpopedal spasm. Differential diagnosis includes dehydration, alcohol intoxication, metabolic derangement, electrolyte abnormality, alcoholic ketoacidosis, intracranial hemorrhage, hyperventilation syndrome. I did perform a limited focused review of portions of the patient's old chart on the electronic medical record. The patient has had frequent visits for alcohol withdrawal and intoxication in 2016. I did evaluate the patient as noted above. The patient is presenting with a near syncopal episode. She was initially hypotensive on arrival. IV access was established. The patient was placed on a continuous manager cardiac. She was given normal saline IV. She is also given a banana bag IV due to her history of alcoholism. Urine test was negative. I did order and personally review the patient's 12-lead EKG and chest x-ray as described above. I did order and review the patient's blood work as noted in the electronic medical record. She does have thrombocytopenia which she has had in the past. She has hypokalemia. She was given oral potassium. The patient does not think she hit her head when she fell but she does complain of a significant headache. I did order a CT of the head to evaluate for subdural hemorrhage or other abnormality. I did review the images myself as well as the radiology report as described above. There is no evidence of intracranial hemorrhage. I did reevaluate the patient. Despite her elevated alcohol level she has signs of withdrawal. She was given 50 mg of Librium orally. The nurse let me know that the patient wears having significantly worse tremors and her heart rate was 103. I therefore treated her with Ativan 1 mg IV. The nurse later called me and stated that the patient was seizing. I did immediately go to the room to reassess her. The patient was arching her back and twitching her hands and had her feet pointed downward with the left knee bent. I asked her to open her eyes and she opened her eyes. She was asking me questions. I told her to stop arching her back and she did this. She was hyperventilating and I told her to slow her breathing down. Her heart rate did go up to 133 but her pulse ox remained 99% on room air. Eventually she stopped shaking and arching her back. She was able to move her self up on the bed. I did recheck her blood pressure and it was 77 systolic. She is given another liter of normal saline IV. The nurse stated that she was unresponsive prior to my arrival to the room. She was clearly awake and had purposeful movement when I saw her so I cannot say that she definitely had a seizure but she does claim that she has had seizures in the past with alcohol withdrawal. Because of this we will admit her to the hospital for further care and evaluation. I did discuss the case with the hospitalist and case resolution specialist. I did reassess the patient and her blood pressure had improved. She had no seizure-like activity. Medication Reconcilliation Current Medication List: was personally reviewed by me Blood Pressure Screening Patient's blood pressure: Normal blood pressure Blood pressure disposition: Did not require urgent referral Consults Time Called: 1312 Consulting Physician: Erika Cisneros PA-C - [facility] Returned Call: [phone] I spoke with Erika Cisneros PA-C of [facility]. We discussed the patient and her results. The patient will be further evaluated by [facility]. Impression Primary Impression: Near syncope Additional Impressions: Hypotension Alcohol withdrawal Seizure-like activity Hypokalemia Thrombocytopenia Abnormal LFTs Headache Critical Care I have personally spent 38 minutes of critical care time in the direct management of this patient. This includes bedside care, interpretation of diagnostic studies and testing, discussion with consultants and patient, and other required patient management activities. This time is in excess of all separately billable procedures. Scribe Attestation The scribe's documentation has been prepared under my direct and personally reviewed by me in its entirety. I confirm that the note above accurately reflects all work, treatment, procedures, and medical decision making performed by me. Departure Information Dispostion Being Evaluated By Hospitalist Referrals No Doctor, Assigned (PCP) Patient Instructions My [facility] Problem Qualifiers Additional Impressions: Hypotension Hypotension type: unspecified hypotension type Qualified Codes: I95.9 - Hypotension, unspecified Alcohol withdrawal Complication of substance-induced condition: with unspecified complication Qualified Codes: F10.239 - Alcohol dependence with withdrawal, unspecified Headache Headache type: unspecified Headache chronicity pattern: acute headache
[2017-09-13 16:00] VITALS: O2SAT 98
[2017-09-13] MEDS ORDERED: GABAPENTIN 1200MG LOADING DOSE PO ONE (16:30)
[2017-09-13] MEDS: NICOTINE 21 MG/24 HR TDSY TD SCH (16:40)
[2017-09-13] MEDS: D5W AND 1/2NSS + 20MEQ KCL 1,000 ML IV SCH (16:40)
[2017-09-13 19:55] VITALS: BP 121/84; PULSE 103; TEMP 36.7; O2SAT 96
[2017-09-13] MEDS: LORAZEPAM 2 MG/ML 1 ML VIAL IV PRN ×3 (20:10→23:35)
[2017-09-13] MEDS: DOXEPIN HCL 50 MG CAP PO SCH (20:12)
[2017-09-13] MEDS: VENLAFAXINE HCL 37.5 MG TAB PO SCH (20:13)
[2017-09-13] MEDS: ACETAMINOPHEN 325 MG TAB PO PRN (22:57)
[2017-09-13] MEDS: GABAPENTIN 600MG Q6H DOSE PO SCH (22:58)
[2017-09-14] VITALS (11 sets, daily range): BP systolic 109–145; BP diastolic 61–92; PULSE 81–105; TEMP 36.6–37; O2SAT 96–99
[2017-09-14] MEDS: LORAZEPAM 2 MG/ML 1 ML VIAL IV PRN ×13 (00:47→22:12)
[2017-09-14] MEDS: D5W AND 1/2NSS + 20MEQ KCL 1,000 ML IV SCH ×3 (02:58→22:23)
[2017-09-14] MEDS: GABAPENTIN 600MG Q6H DOSE PO SCH (06:14)
[2017-09-14 06:24] LABS: HEMATOCRIT 36.1 % (37-47); HEMOGLOBIN 11.9 g/dL (12.0-16.0); MEAN CELL VOLUME 98.4 fL (80-100); MEAN CORPUSCULAR HEMOGLOBIN 32.4 pg (25-34); RED CELL DISTRIBUTION WIDTH CV 13.7 % (11.5-14.5); RED CELL DISTRIBUTION WIDTH SD 49.2 fL (36.4-46.3); WHITE BLOOD COUNT 2.02 K/uL (4.8-10.8)
[2017-09-14 06:28] LABS: MEAN PLATELET VOLUME 11.7 fL (7.4-10.4); PLATELET COUNT 53 K/uL (130-400)
[2017-09-14 06:54] LABS: CALCIUM 8.1 mg/dl (8.5-10.1); CREATININE 0.72 mg/dl (0.60-1.20)
[2017-09-14 06:57] LABS: TOTAL PROTEIN 6.4 gm/dl (6.4-8.2)
[2017-09-14] MEDS: PANTOprazole SOD 40 MG TAB PO SCH (07:33)
[2017-09-14] MEDS: CYANOCOBALAMIN 500 MCG TAB (VIT B-12) PO SCH (07:34)
[2017-09-14] MEDS: MONTELUKAST SOD 10 MG TAB PO SCH (07:34)
[2017-09-14] MEDS: VENLAFAXINE HCL 37.5 MG TAB PO SCH ×2 (07:34→07:43)
[2017-09-14] MEDS: TOPIRAMATE 100 MG TAB PO SCH (07:35)
[2017-09-14] MEDS ORDERED: MULTI-VITAMIN INFUSION INJ 10 ML, THIAMINE HCL INJ 100 MG, FoLIC ACID INJ 1 MG in SODIU... IV ONE (08:00)
[2017-09-14] MEDS: NICOTINE 21 MG/24 HR TDSY TD SCH (08:52)
[2017-09-14] MEDS ORDERED: CHLORDIAZEPOXIDE 25 MG CAP PO ONE (09:58)
--- NOTE | 2017-09-14 12:06 | Psychiatric Consultation ---
Consultation Date of Consultation Sep 14, 2017. Identifying Data 31 yo female admitted medically for alcohol withdrawal. Consult requested to evaluate hx of bipolar and alcohol abuse. Chief Complaint "I'm depressed as hell.". History of Present Illness The patient is a 31-year-old woman with a long history of mental health treatment, who is admitted medically with alcohol withdrawal. She presented initially to the emergency room with a near syncopal episode. She admits that she has long had struggles with substance use issues, and recently has been drinking 1/5 of vodka a day for at least the last month. She has a history of DTs and alcohol withdrawal seizures. She is also struggling with severe depression. She admits that several months ago, she officially lost custody of [id number] daughter and has been depressed ever since. She admits that several weeks ago, she made a suicide attempt while intoxicated, by taking a handful of doxepin and going to sleep. Her roommates eventually found her laying on the floor. She did tell them that it was an overdose but no one thought it worthy of coming to the emergency department. She also has a 7-year- old son who is in the custody of his father and that is also a stressful situation since she does not have control of her visitation. She is not currently in any kind of psychiatric treatment, with the last provider having been Dr. Hernandez. She is not currently taking any medications that are designed for psychiatric reasons. She reports that her mood has been "all over the place " going from wanting to sleep all the time to running around cleaning to feeling angry. Since the overdose attempt several weeks ago however she says that her mood has been more "okay". She reports her sleep is disturbed, getting only 2-3 hours of sleep per night and has night terrors related to the many people she has found or has lost. Her appetite has been "up and down " she thinks she has lost about 5 pounds in the last month. Her anxiety is "terrible" and has panic attacks that occur about 2 times per week, triggered by "anything". In asking about bipolar 1 manic episodes, she denies any discrete episodes of euphoric mood, sleeplessness or pleasure seeking behaviors , but does endorse irritability and chronically impaired sleep. She reports a history of PTSD from the many losses, for example having found both of her parents at different times , but denies flashbacks. She is not currently feeling suicidal but does believe that she needs to have her mental health addressed. Past Psychiatric History Current OP Treatment: no current treatment Prior OP Treatment: psychiatrist (Dr. Hernandez) Prior Psych Hospitalizations: [facility], other ([facility]) Access to a Gun: No Suicide Attempts: No Past Medication Trials Celexa, Depakote, Vyvanse, Seroquel, and many other she cannot remember Past Medical/Surgical History History of Concussion/Seizure: No (1) MTHFR mutation (2) Hepatitis C (3) Tobacco abuse (4) H/O deep venous thrombosis Allergies Allergies: Coded Allergies: Metoclopramide (Verified Adverse Reaction, Intermediate, RASH, 09/13/17) Home Medications Scheduled Cyanocobalamin (Vitamin B-12), 1,000 MCG PO DAILY Doxepin (Sinequan), 50 MG PO HS Folic Acid (Folic Acid), 1 TAB PO DAILY Montelukast Sod (Montelukast Sodium), 10 MG PO DAILY Pantoprazole (Protonix), 40 MG PO DAILY Topiramate (Topiramate), 100 MG PO BID Venlafaxine Hcl (Effexor), 75 MG PO TID Scheduled PRN Albuterol Hfa (Ventolin Hfa), 2 PUFFS INH QID PRN for SOB/Wheezing Family History Blood clots AUNT PGM Diabetes mellitus MGF PGF FH: cancer FH: lung disease FHx: gallbladder disease History of Suicide: No History of Substance Abuse: Yes (Father alcohol, of cirrhosis) Psychiatric History: Yes (Sister depression) Alcohol Use Alcohol Use In Past 12 Months: Yes Has been drinking 1/5 of vodka daily for the last month or more. Positive history of withdrawal seizures and DTs. Has been in many rehabs, last at [facility] in April and was able to maintain sobriety for only 1 month Smoking Use Smoking Status: Current Every Day Smoker Substance History History of polysubstance abuse including cocaine, methadone and THC Personal History Lives in: Is currently [facility] Childhood: Mother when she was 2, father 13 years ago. She was raised by her grandmother. She has 1 sister with whom she has no contact Education: graduated from high school, started college Work History: Currently employed at a [employer] Relationship History: never Children: 2 children, a 2-year-old daughter who recently was adopted out and a 7-year Spiritual Affiliation: None Legal History: other (Incarcerated in September 2016 for DUI) Psychological Trauma History: Significant Loss (Found her mother and father , lost multiple other friends to overdoses) Review of Systems Constitutional: malaise Eyes: denies: no symptoms, as stated in HPI, eye pain, tearing, itching, redness, discharge, double vision, visual changes, blurred vision, photophobia, other ENT: denies: no symptoms reported, see HPI, ear pain, ear discharge, loss of hearing, tinnitus, nasal pain, nasal congestion, rhinorrhea, epistaxis, sore throat, stidor, throat swelling, mouth pain, mouth swelling, dental pain, gum swelling, other Cardiovascular: denies: no symptoms reported, see HPI, chest pain, chest tightness, chest pressure, diaphoresis, palpitations, syncope, other Respiratory: reports: other (Nicotine withdrawal) Gastrointestinal: denies no symptoms reported, denies see HPI, denies abdominal pain, denies constipation, denies diarrhea, denies nausea, denies vomiting, denies other Genitourinary - Female: denies: no symptoms, see HPI, rash, amenorrhea, dysmenorrhea, menorrhagia, metrorrhagia, , vaginal bleeding, vaginal itching, vaginal discharge, vulvadynia, other Musculoskeletal: denies no symptoms reported, denies see HPI, denies back pain , denies gout, denies joint pain, denies joint swelling, denies muscle pain, denies muscle stiffness, denies neck pain, denies other Integumentary: denies no symptoms reported, denies see HPI, denies change in color, denies change in hair/nails, denies dryness, denies lesions, denies lumps , denies rash, denies other Neurologic: denies: no symptoms, see HPI, headache, numbness, paresthesias, pre -existing deficit, seizure, tingling, tremors, general weakness, tics, focal weakness, vertigo, lethargy, memory loss, dizziness, other Endocrine: denies: no symptoms, as stated in HPI, cold intolerance, heat intolerance, hair changes, goiter, polydipsia, polyuria, skin changes, other Hematologic / Lymphatic: denies: no symptoms, as stated in HPI, abnormal clotting, adenopathy, anemia, easy bleeding, easy bruising, gums bleeding, petechiae, other Examination Vital Signs Vital Signs Past 12 Hours Date Time Temp Pulse Resp B/P (MAP) Pulse Ox O2 Delivery O2 Flow Rate FiO2 09/14/17 11:11 36.7 88 20 130/84 (99) 98 09/14/17 08:00 98 Room Air 09/14/17 07:58 36.7 94 20 145/92 (109) 97 09/14/17 04:27 37.0 85 23 122/76 (91) 96 Room Air 09/14/17 04:00 Room Air 09/14/17 00:22 36.7 87 23 117/67 (84) 97 Room Air 09/14/17 00:01 Room Air Laboratory Results Last 24 Hours Test 09/14/17 05:49 White Blood Count 2.02 K/uL Red Blood Count 3.67 M/uL Hemoglobin 11.9 g/dL Hematocrit 36.1 % Mean Corpuscular Volume 98.4 fL Mean Corpuscular Hemoglobin 32.4 pg Mean Corpuscular Hemoglobin Concent 33.0 g/dl RDW Standard Deviation 49.2 fL RDW Coefficient of Variation 13.7 % Platelet Count 53 K/uL Mean Platelet Volume 11.7 fL Sodium Level 139 mmol/L Potassium Level 4.0 mmol/L Chloride Level 109 mmol/L Carbon Dioxide Level 23 mmol/L Anion Gap 7.0 mmol/L Blood Urea Nitrogen 9 mg/dl Creatinine 0.72 mg/dl Est Creatinine Clear Calc Drug Dose 100.0 ml/min Estimated GFR () 127.5 Estimated GFR (Non- 110.0 BUN/Creatinine Ratio 12.2 Random Glucose 92 mg/dl Calcium Level 8.1 mg/dl Total Bilirubin 1.0 mg/dl Direct Bilirubin 0.3 mg/dl Aspartate Amino Transf (AST/SGOT) 214 U/L Alanine Aminotransferase (ALT/SGPT) 198 U/L Alkaline Phosphatase 33 U/L Total Protein 6.4 gm/dl Albumin 3.0 gm/dl Globulin 3.4 gm/dl Albumin/Globulin Ratio 0.9 Mental Examination During interview pt is: alert and oriented, cooperative Appearance: appropriately groomed Eye contact is: good Motor behavior is: other (Restlessly repositioning) Speech: other (Quiet, difficult to hear at times) Affect: depressed, flat Mood is: depressed Thought process: goal directed Thought content: reality based without delusions Suicidal thought are: denied Homicidal thoughts are: denied Hallucinations: visual Cognition: attention grossly intact, language grossly intact Intelligence estimated to be: average Insight: limited Judgement: limited Impression / Recommendations Impression 31-year-old woman with known alcohol dependence and history of mental health treatment, admitted medically with alcohol withdrawal. We are consulted to evaluate bipolar disorder. Although she admits to being in mental health treatment for years and years, she does not know what her diagnosis is. She does present with some bipolar 2 symptoms recently with unstable labile mood irritability and sleep impairment. She has been on Neurontin in the past and she is currently prescribed that as part of the alcohol withdrawal protocol and so we can use this for double purpose, to target her alcohol withdrawal and mood stabilization. I feel that her needs would best be met in a dual diagnosis facility that could address both her alcohol dependence and her mental illness but this will need to be determined at the time she is medically cleared. She is refusing to attend inpatient rehab if there is no mental health treatment associated with it. We will continue to follow along and make a recommendation at the time she is cleared. Although she will need benzodiazepines, and gabapentin for her alcohol withdrawal, she does have some elevated liver enzymes and bilirubin and so would be cautious about using Librium for any length of time. She is not currently acutely suicidal and so I see no need for a one-to-one attendant. I will ask the liaison nurse to get records from her most recent psychiatrist to flush out her diagnosis. Recommendations (1) Bipolar disorder Differential includes mood disorder NOS, depression related to substance abuse, bipolar 2 disorder and major depressive disorder. 09/14 -Patient is already on gabapentin for alcohol withdrawal and would continue its use for mood stabilization. -Will obtain last psychiatrist's outpatient notes - -Patient has recently made a suicide attempt and so will need mental health treatment. I would prefer that she obtain dual diagnosis serving both her substance use needs and her psychiatric, but she is refusing inpatient rehab at this time. Final recommendation will be made at the time she is medically cleared. (2) Alcohol dependence 09/14 -Recommend inpatient rehab which the patient is refusing. Consider dual diagnosis facility if she will accept - avoid controlled substances where able to - history of fatty liver with induced liver enzymes and bilirubin. Proceed with caution with long-acting Librium - Agree with use of AWSS Dr. Ghada gonzalez has personally been involved in the review of this case and development of these recommendations.
--- NOTE | 2017-09-14 12:47 | Progress Note ---
Medicine Progress Note Date & Time of Visit: Sep 14, 2017 at 12:11. Subjective Pt was seen and examined Sitting in bed with no distress Pt has been getting Ativan q1hr for CIWA She said that she is very anxious She said that she would like to get help for inpatient alcohol rehab denies any hallucination and psychosis Objective Last 8 Hrs Date Time Temp Pulse Resp B/P (MAP) Pulse Ox O2 Delivery O2 Flow Rate FiO2 09/14/17 11:11 36.7 88 20 130/84 (99) 98 09/14/17 08:00 98 Room Air 09/14/17 07:58 36.7 94 20 145/92 (109) 97 09/14/17 04:27 37.0 85 23 122/76 (91) 96 Room Air Physical Exam: General- no acute distress Head- atraumatic Eyes- PERRL, EOMI, No nystagmus ENT- oropharynx clear Neck- supple, no JVD Lungs- clear to auscultation Heart- regular rhythm Abdomen- normal bowel sounds, soft Extremities- no calf tenderness, +tremor, finger to nose with tremors as well Neuro- alert, oriented x 3; PERRL Skin- warm & dry Laboratory Results: Last 24 Hours Test 09/14/17 05:49 White Blood Count 2.02 K/uL Red Blood Count 3.67 M/uL Hemoglobin 11.9 g/dL Hematocrit 36.1 % Mean Corpuscular Volume 98.4 fL Mean Corpuscular Hemoglobin 32.4 pg Mean Corpuscular Hemoglobin Concent 33.0 g/dl RDW Standard Deviation 49.2 fL RDW Coefficient of Variation 13.7 % Platelet Count 53 K/uL Mean Platelet Volume 11.7 fL Sodium Level 139 mmol/L Potassium Level 4.0 mmol/L Chloride Level 109 mmol/L Carbon Dioxide Level 23 mmol/L Anion Gap 7.0 mmol/L Blood Urea Nitrogen 9 mg/dl Creatinine 0.72 mg/dl Est Creatinine Clear Calc Drug Dose 100.0 ml/min Estimated GFR () 127.5 Estimated GFR (Non- 110.0 BUN/Creatinine Ratio 12.2 Random Glucose 92 mg/dl Calcium Level 8.1 mg/dl Total Bilirubin 1.0 mg/dl Direct Bilirubin 0.3 mg/dl Aspartate Amino Transf (AST/SGOT) 214 U/L Alanine Aminotransferase (ALT/SGPT) 198 U/L Alkaline Phosphatase 33 U/L Total Protein 6.4 gm/dl Albumin 3.0 gm/dl Globulin 3.4 gm/dl Albumin/Globulin Ratio 0.9 Assessment & Plan NEAR SYNCOPE Possible related orthostatic hypotension and Alcohol abuse CT head showed no intracranial abnormality Fall precaution ALCOHOL WITHDRAWAL ETOH level on admission 147 in ER. On alcohol withdrawn protocol with gabapentin and ativan has been getting Ativan q1hr (CIWA) Adding Librium 25mg BIDx 2 days ( Will be cautious) Monitor closely for DT 1 to 1 observation If become drowsy and hallucinates, will transfer to ICU for airway protection Continue thiamine and folic acid Continue seizure precaution and aspiration precautions Will benefit for inpatient alcohol rehab HYPOKALEMIA K stable Continue monitor BMP ELEVATED LIVER FUNCTIONS Hx HEPATITIS C ALT: 377 (baseline ~361) and AST: 285 (baseline ~228). Alk phos: 39. Last Abd CT on 03/2017 - hepatic steatosis Liver enzymes trending down Will be caution with Ativan and Librium Continue monitor LFT THROMBOCYTOPENIA Plt 53 today No active bleeding Monitor CBC HX IV DRUG ABUSE Pt reports being clean for past 5 years Urine tox screen negative for Marijuana and cocaine HX TOBACCO ABUSE Nicotine patch Counseling on smoking cessation BIPOLAR DISORDER/ADHD Resumed Effexor and Topamax psych on board Denies any suicidal thought ASTHMA continue albuterol inhaler prn Stable DVT Prophylaxis SCDs (Thrombocytopenia) Disposition Continue monitor in tele Consider inpatient alcohol rehab Current Inpatient Medications: Current Inpatient Medications Medications (Trade) Dose Ordered Sig/Viky Route Start Time Stop Time Status Last Admin Dose Admin Acetaminophen (Tylenol Tab) 650 mg Q4H PRN PO 09/13/17 14:15 10/13/17 14:14 09/13/17 22:57 650 MG Magnesium Hydroxide (Milk Of Magnesia Susp) 30 ml Q12H PRN PO 09/13/17 14:15 10/13/17 14:14 Ondansetron HCl (Zofran Inj) 4 mg Q6H PRN IV 09/13/17 14:15 10/13/17 14:14 Lorazepam (Ativan Tab) PRN Dosing -Active Protocol UD PRN PO 09/13/17 14:15 10/13/17 14:14 Lorazepam (Ativan Inj) PRN Dosing -Active Protocol Q1H PRN IV 09/13/17 14:15 10/13/17 14:14 09/14/17 09:57 2 MG Potassium Chloride/Dextrose/ Sod Cl 1,000 ml @ 100 mls/hr Q10H IV 09/13/17 16:15 10/13/17 16:14 09/14/17 02:58 100 MLS/HR Albuterol (Ventolin Hfa Inhaler) 2 puffs QID PRN INH 09/13/17 14:30 10/13/17 14:29 Cyanocobalamin (Vitamin B-12 Tab) 1,000 mcg DAILY PO 09/14/17 09:00 10/14/17 08:59 09/14/17 07:34 1,000 MCG Doxepin HCl (Sinequan Cap) 50 mg HS PO 09/13/17 21:00 10/13/17 20:59 09/13/17 20:12 50 MG Folic Acid (Folvite Tab) 1 mg DAILY PO 09/14/17 09:00 10/14/17 08:59 09/14/17 07:34 1 MG Montelukast Sodium (Singulair Tab) 10 mg DAILY PO 09/14/17 09:00 10/14/17 08:59 09/14/17 07:34 10 MG Pantoprazole Sodium (Protonix Tab) 40 mg DAILY PO 09/14/17 09:00 10/14/17 08:59 09/14/17 07:33 40 MG Topiramate (Topamax Tab) 100 mg DAILY PO 09/14/17 09:00 10/14/17 08:59 09/14/17 07:35 100 MG Venlafaxine HCl (effeXOR TAB) 75 mg TID PO 09/13/17 21:00 10/13/17 20:59 Thiamine HCl (Vitamin B-1 Tab) 100 mg QAM PO 09/16/17 09:00 10/16/17 08:59 Multivitamins (Multivitamin Tab) 1 tab QAM PO 09/16/17 09:00 10/16/17 08:59 Nicotine (Nicoderm Cq 21MG Patch) 1 patch QAM TD 09/13/17 15:15 10/13/17 15:14 09/14/17 08:52 1 PATCH Miscellaneous (Remove Nicoderm Patch) 1 ea HS N/A 09/13/17 21:00 10/13/17 20:59 09/13/17 21:00 1 EA Gabapentin (Neurontin Tab) 600 mg Q8H PO 09/14/17 14:00 09/15/17 06:01 Gabapentin (Neurontin Tab) 600 mg Q12H PO 09/15/17 18:00 09/16/17 06:01 Gabapentin (Neurontin Tab) 600 mg Q24H PO 09/17/17 06:00 09/17/17 06:01 Chlordiazepoxide (Librium Cap) 25 mg BID PO 09/14/17 21:00 10/14/17 20:59
[2017-09-14] MEDS: ACETAMINOPHEN 325 MG TAB PO PRN (12:59)
--- NOTE | 2017-09-14 14:56 | Psychiatric Progress Notes ---
Psychiatric Progress Note Date of Service Sep 14, 2017. Notes contacted by attending and nursing after patient wanted to sign out AMA to go smoke. Ed naylor called. Sent liaison to assess, and per her report patient appears more delirious, disorganized. After discussion was able to calm down, agree that she is depressed and needs treatment and needs to stay for alcohol detox. Agreed to take some Seroquel to help her remain calm, saying that Haldol is something she has been on in the past and didn't like. Collaborated with Dr. Gale. Will put a 302 petitioner's statement on the chart in view of recent suicide attempt, if needed moving forward. At this point she is not making reasonable decisions, admits to depression with suicide attempt and is at high risk for another attempt given her severe alcohol dependence, and risk factors that have not been mediated. I have also ordered her nicorette gum to use with her nicotine patch. I have communicated this to Dr. Ny who is in agreement.
[2017-09-14] MEDS: GABAPENTIN 600MG Q8H DOSE PO SCH ×2 (15:04→21:33)
[2017-09-14] MEDS: QUETIAPINE FUMARATE 25 MG TAB PO PRN ×2 (15:04→21:33)
[2017-09-14] MEDS: NICOTINE POLACRILEX 2 MG GUM MT PRN ×3 (15:05→22:23)
[2017-09-14] MEDS: CHLORDIAZEPOXIDE 25 MG CAP PO SCH (20:49)
[2017-09-14] MEDS: DOXEPIN HCL 50 MG CAP PO SCH (21:32)
[2017-09-15] VITALS (13 sets, daily range): BP systolic 102–125; BP diastolic 57–75; PULSE 65–121; TEMP 36.4–37.2; O2SAT 95–98
[2017-09-15] MEDS: GABAPENTIN 600MG Q8H DOSE PO SCH (05:42)
[2017-09-15] MEDS: MONTELUKAST SOD 10 MG TAB PO SCH (07:34)
[2017-09-15] MEDS: TOPIRAMATE 100 MG TAB PO SCH (07:34)
[2017-09-15] MEDS: CYANOCOBALAMIN 500 MCG TAB (VIT B-12) PO SCH (07:34)
[2017-09-15] MEDS: PANTOprazole SOD 40 MG TAB PO SCH (07:34)
[2017-09-15] MEDS: CHLORDIAZEPOXIDE 25 MG CAP PO SCH ×2 (07:35→21:00)
[2017-09-15] MEDS: NICOTINE POLACRILEX 2 MG GUM MT PRN ×4 (07:36→17:26)
[2017-09-15] MEDS: LORAZEPAM 2 MG/ML 1 ML VIAL IV PRN ×5 (07:38→16:04)
[2017-09-15] MEDS: D5W AND 1/2NSS + 20MEQ KCL 1,000 ML IV SCH ×2 (07:40→17:25)
[2017-09-15] MEDS: NICOTINE 21 MG/24 HR TDSY TD SCH (09:00)
[2017-09-15] MEDS: QUETIAPINE FUMARATE 25 MG TAB PO PRN ×2 (10:31→14:22)
--- NOTE | 2017-09-15 13:03 | Progress Note ---
Medicine Progress Note Date & Time of Visit: Sep 15, 2017 at 12:56. Subjective Pt was seen and examined Lying in bed with no distress with 1 to 1 observation Pt is calm today He said that she still has the crave to go outside to smoke a cigarette She understands that she cannot leave the hospital because she a 302 She is still a little wobble as per nursing aid Denies any hallucination, palpitation, dizziness and sob Objective Last 8 Hrs Date Time Temp Pulse Resp B/P (MAP) Pulse Ox O2 Delivery O2 Flow Rate FiO2 09/15/17 12:41 36.6 121 22 125/66 (85) 98 Room Air 09/15/17 12:00 36.6 84 22 110/64 (79) 98 Room Air 09/15/17 11:15 Room Air 09/15/17 10:45 36.4 106 22 114/67 (83) 98 Room Air 09/15/17 10:34 36.4 92 18 114/67 (83) 98 Room Air 09/15/17 08:00 Room Air 09/15/17 07:20 36.7 91 18 110/75 (87) 95 Room Air Physical Exam: General- no acute distress Head- atraumatic Eyes- PERRL, EOMI, No nystagmus ENT- oropharynx clear Neck- supple, no JVD Lungs- clear to auscultation Heart- regular rhythm Abdomen- normal bowel sounds, soft Extremities- no calf tenderness, +tremor, finger to nose with tremors as well Neuro- alert, oriented x 3; PERRL Skin- warm & dry Assessment & Plan NEAR SYNCOPE Possible related orthostatic hypotension and Alcohol abuse CT head showed no intracranial abnormality Fall precaution Stable ALCOHOL WITHDRAWAL ETOH level on admission 147 in ER. On alcohol withdrawn protocol with gabapentin and ativan has been getting Ativan q1hr (CIWA) Adding Librium 25mg BIDx 2 days ( Will be cautious) Monitor closely for DT 1 to 1 observation If become drowsy and hallucinates, will transfer to ICU for airway protection Continue thiamine and folic acid Continue seizure precaution and aspiration precautions Will benefit for inpatient alcohol rehab HYPOKALEMIA K stable Continue monitor BMP ELEVATED LIVER FUNCTIONS Hx HEPATITIS C ALT: 377 (baseline ~361) and AST: 285 (baseline ~228). Alk phos: 39. Last Abd CT on 03/2017 - hepatic steatosis Liver enzymes trending down Will be caution with Ativan and Librium Continue monitor LFT Check liver enzymes in am THROMBOCYTOPENIA Plt 53 yesterday No active bleeding Monitor CBC HX IV DRUG ABUSE Pt reports being clean for past 5 years Urine tox screen negative for Marijuana and cocaine HX TOBACCO ABUSE Nicotine patch Counseling on smoking cessation Continue to crave to go smoke outside BIPOLAR DISORDER/ADHD/DEPRESSION Resumed Effexor and Topamax psych on board Denies any suicidal thought CURRENTLY Few weeks ago made a suicide attempt as per psych cannot sign AMA 302 petitioner's statement on the chart ASTHMA continue albuterol inhaler prn Stable DVT Prophylaxis SCDs (Thrombocytopenia) Disposition Continue monitor in tele Consider inpatient alcohol rehab Current Inpatient Medications: Current Inpatient Medications Medications (Trade) Dose Ordered Sig/Viky Route Start Time Stop Time Status Last Admin Dose Admin Acetaminophen (Tylenol Tab) 650 mg Q4H PRN PO 09/13/17 14:15 10/13/17 14:14 09/14/17 12:59 650 MG Magnesium Hydroxide (Milk Of Magnesia Susp) 30 ml Q12H PRN PO 09/13/17 14:15 10/13/17 14:14 Ondansetron HCl (Zofran Inj) 4 mg Q6H PRN IV 09/13/17 14:15 10/13/17 14:14 Lorazepam (Ativan Tab) PRN Dosing -Active Protocol UD PRN PO 09/13/17 14:15 10/13/17 14:14 Lorazepam (Ativan Inj) PRN Dosing -Active Protocol Q1H PRN IV 09/13/17 14:15 10/13/17 14:14 09/15/17 12:38 2 MG Potassium Chloride/Dextrose/ Sod Cl 1,000 ml @ 100 mls/hr Q10H IV 09/13/17 16:15 10/13/17 16:14 09/15/17 07:40 100 MLS/HR Albuterol (Ventolin Hfa Inhaler) 2 puffs QID PRN INH 09/13/17 14:30 10/13/17 14:29 Cyanocobalamin (Vitamin B-12 Tab) 1,000 mcg DAILY PO 09/14/17 09:00 10/14/17 08:59 09/15/17 07:34 1,000 MCG Doxepin HCl (Sinequan Cap) 50 mg HS PO 09/13/17 21:00 10/13/17 20:59 3/30/18 21:32 50 MG Folic Acid (Folvite Tab) 1 mg DAILY PO 09/14/17 09:00 10/14/17 08:59 09/15/17 07:34 1 MG Montelukast Sodium (Singulair Tab) 10 mg DAILY PO 09/14/17 09:00 10/14/17 08:59 09/15/17 07:34 10 MG Pantoprazole Sodium (Protonix Tab) 40 mg DAILY PO 09/14/17 09:00 10/14/17 08:59 09/15/17 07:34 40 MG Topiramate (Topamax Tab) 100 mg DAILY PO 09/14/17 09:00 10/14/17 08:59 09/15/17 07:34 100 MG Thiamine HCl (Vitamin B-1 Tab) 100 mg QAM PO 09/16/17 09:00 10/16/17 08:59 Multivitamins (Multivitamin Tab) 1 tab QAM PO 09/16/17 09:00 10/16/17 08:59 Nicotine (Nicoderm Cq 21MG Patch) 1 patch QAM TD 09/13/17 15:15 10/13/17 15:14 09/14/17 08:52 1 PATCH Miscellaneous (Remove Nicoderm Patch) 1 ea HS N/A 09/13/17 21:00 10/13/17 20:59 09/14/17 20:51 1 EA Gabapentin (Neurontin Tab) 600 mg Q12H PO 09/15/17 18:00 09/16/17 06:01 Gabapentin (Neurontin Tab) 600 mg Q24H PO 09/17/17 06:00 09/17/17 06:01 Chlordiazepoxide (Librium Cap) 25 mg BID PO 09/14/17 21:00 10/14/17 20:59 09/15/17 07:35 25 MG Quetiapine Fumarate (seroQUEL TAB) 50 mg Q4H PRN PO 09/14/17 14:45 10/14/17 14:44 09/15/17 10:31 50 MG Nicotine Polacrilex (Nicorette 2MG Gum) not to exceed > 24 pie... Q1H PRN MT 09/14/17 21:45 10/14/17 14:29 09/15/17 10:33 1 PIECE
[2017-09-15] MEDS: GABAPENTIN 600MG Q12H DOSE PO SCH (17:25)
[2017-09-15] MEDS: DOXEPIN HCL 50 MG CAP PO SCH (21:00)
[2017-09-16] VITALS (7 sets, daily range): BP systolic 91–104; BP diastolic 58–70; PULSE 85–119; TEMP 36.3–36.7; O2SAT 97–98
[2017-09-16] MEDS: D5W AND 1/2NSS + 20MEQ KCL 1,000 ML IV SCH ×3 (04:22→23:08)
[2017-09-16] MEDS: GABAPENTIN 600MG Q12H DOSE PO SCH (05:18)
[2017-09-16] MEDS: LORAZEPAM 2 MG/ML 1 ML VIAL IV PRN ×10 (05:18→22:36)
[2017-09-16 06:28] LABS: HEMATOCRIT 37.9 % (37-47); HEMOGLOBIN 12.8 g/dL (12.0-16.0); MEAN CELL VOLUME 97.7 fL (80-100); MEAN CORPUSCULAR HGB CONC 33.8 g/dl (32-36); MEAN PLATELET VOLUME 11.9 fL (7.4-10.4); PLATELET COUNT 71 K/uL (130-400); RED CELL DISTRIBUTION WIDTH CV 13.9 % (11.5-14.5); RED CELL DISTRIBUTION WIDTH SD 49.3 fL (36.4-46.3); WHITE BLOOD COUNT 4.11 K/uL (4.8-10.8)
[2017-09-16 07:05] LABS: ALBUMIN 3.3 gm/dl (3.4-5.0); CALCIUM 8.7 mg/dl (8.5-10.1); CREATININE 0.8 mg/dl (0.60-1.20); POTASSIUM 3.8 mmol/L (3.5-5.1)
[2017-09-16 07:08] LABS: TOTAL PROTEIN 6.9 gm/dl (6.4-8.2)
[2017-09-16] MEDS: CHLORDIAZEPOXIDE 25 MG CAP PO SCH ×2 (08:06→20:43)
[2017-09-16] MEDS: MULTIVITAMIN TAB PO SCH (08:08)
[2017-09-16] MEDS: THIAMINE HCL 100 MG TAB PO SCH (08:08)
[2017-09-16] MEDS: CYANOCOBALAMIN 500 MCG TAB (VIT B-12) PO SCH (08:08)
[2017-09-16] MEDS: PANTOprazole SOD 40 MG TAB PO SCH (08:08)
[2017-09-16] MEDS: NICOTINE 21 MG/24 HR TDSY TD SCH (08:09)
[2017-09-16] MEDS: MONTELUKAST SOD 10 MG TAB PO SCH (08:09)
[2017-09-16] MEDS: TOPIRAMATE 100 MG TAB PO SCH (08:09)
--- NOTE | 2017-09-16 16:06 | Progress Note ---
Medicine Progress Note Date & Time of Visit: Sep 16, 2017 at 16:00. Subjective Pt was seen and examined Lying in bed with no distress Pt said that her walking is a little bit more stable today She said her tremor is less Denies any hallucination, dizziness, chest pain and SOB Objective Last 8 Hrs Date Time Temp Pulse Resp B/P (MAP) Pulse Ox O2 Delivery O2 Flow Rate FiO2 09/16/17 12:00 Room Air 09/16/17 11:04 36.7 98 18 92/70 (77) 97 Room Air Physical Exam: General- no acute distress Head- atraumatic Eyes- PERRL, EOMI, No nystagmus ENT- oropharynx clear Neck- supple, no JVD Lungs- clear to auscultation Heart- regular rhythm Abdomen- normal bowel sounds, soft Extremities- no calf tenderness, +tremor, finger to nose with tremors as well Neuro- alert, oriented x 3; PERRL Skin- warm & dry Laboratory Results: Last 24 Hours Test 09/16/17 06:00 White Blood Count 4.11 K/uL Red Blood Count 3.88 M/uL Hemoglobin 12.8 g/dL Hematocrit 37.9 % Mean Corpuscular Volume 97.7 fL Mean Corpuscular Hemoglobin 33.0 pg Mean Corpuscular Hemoglobin Concent 33.8 g/dl RDW Standard Deviation 49.3 fL RDW Coefficient of Variation 13.9 % Platelet Count 71 K/uL Mean Platelet Volume 11.9 fL Sodium Level 136 mmol/L Potassium Level 3.8 mmol/L Chloride Level 105 mmol/L Carbon Dioxide Level 24 mmol/L Anion Gap 7.0 mmol/L Blood Urea Nitrogen 10 mg/dl Creatinine 0.80 mg/dl Est Creatinine Clear Calc Drug Dose 90.0 ml/min Estimated GFR () 112.3 Estimated GFR (Non- 96.9 BUN/Creatinine Ratio 12.8 Random Glucose 84 mg/dl Calcium Level 8.7 mg/dl Total Bilirubin 0.8 mg/dl Aspartate Amino Transf (AST/SGOT) 156 U/L Alanine Aminotransferase (ALT/SGPT) 174 U/L Alkaline Phosphatase 39 U/L Total Protein 6.9 gm/dl Albumin 3.3 gm/dl Globulin 3.6 gm/dl Albumin/Globulin Ratio 0.9 Assessment & Plan NEAR SYNCOPE Possible related orthostatic hypotension and Alcohol abuse CT head showed no intracranial abnormality Fall precaution Stable ALCOHOL WITHDRAWAL ETOH level on admission 147 in ER. On alcohol withdrawn protocol with gabapentin and ativan has been getting Ativan q1hr (CIWA) Adding Librium 25mg BIDx 2 days ( Will be cautious) Monitor closely for DT If become drowsy and hallucinates, will transfer to ICU for airway protection Continue thiamine and folic acid Continue seizure precaution and aspiration precautions Will benefit for inpatient alcohol rehab Will change librium to daily tomorrow Continue requiring Ativan prn HYPOKALEMIA K stable Continue monitor BMP ELEVATED LIVER FUNCTIONS Hx HEPATITIS C ALT: 377 (baseline ~361) and AST: 285 (baseline ~228). Alk phos: 39. Last Abd CT on 03/2017 - hepatic steatosis Liver enzymes trending down Will be caution with Ativan and Librium Continue monitor LFT Check liver enzymes in am THROMBOCYTOPENIA Plt improved to 71 No active bleeding Monitor CBC HX IV DRUG ABUSE Pt reports being clean for past 5 years Urine tox screen negative for Marijuana and cocaine HX TOBACCO ABUSE Nicotine patch Counseling on smoking cessation Continue to crave to go smoke outside BIPOLAR DISORDER/ADHD/DEPRESSION Resumed Effexor and Topamax psych on board Denies any suicidal thought CURRENTLY Few weeks ago made a suicide attempt as per psych cannot sign AMA 302 petitioner's statement on the chart case discussed with psych today Will need inpatient psych treatment ASTHMA continue albuterol inhaler prn Stable DVT Prophylaxis SCDs (Thrombocytopenia) Disposition Continue monitor in tele Consider inpatient alcohol rehab Consultants: Psych Current Inpatient Medications: Current Inpatient Medications Medications (Trade) Dose Ordered Sig/Viky Route Start Time Stop Time Status Last Admin Dose Admin Acetaminophen (Tylenol Tab) 650 mg Q4H PRN PO 09/13/17 14:15 10/13/17 14:14 09/14/17 12:59 650 MG Magnesium Hydroxide (Milk Of Magnesia Susp) 30 ml Q12H PRN PO 09/13/17 14:15 10/13/17 14:14 Ondansetron HCl (Zofran Inj) 4 mg Q6H PRN IV 09/13/17 14:15 10/13/17 14:14 Lorazepam (Ativan Tab) PRN Dosing -Active Protocol UD PRN PO 09/13/17 14:15 10/13/17 14:14 Lorazepam (Ativan Inj) PRN Dosing -Active Protocol Q1H PRN IV 09/13/17 14:15 10/13/17 14:14 09/16/17 15:42 1 MG Potassium Chloride/Dextrose/ Sod Cl 1,000 ml @ 100 mls/hr Q10H IV 09/13/17 16:15 10/13/17 16:14 09/16/17 12:57 100 MLS/HR Albuterol (Ventolin Hfa Inhaler) 2 puffs QID PRN INH 09/13/17 14:30 10/13/17 14:29 Cyanocobalamin (Vitamin B-12 Tab) 1,000 mcg DAILY PO 09/14/17 09:00 10/14/17 08:59 09/16/17 08:08 1,000 MCG Doxepin HCl (Sinequan Cap) 50 mg HS PO 09/13/17 21:00 10/13/17 20:59 09/14/17 21:32 50 MG Folic Acid (Folvite Tab) 1 mg DAILY PO 09/14/17 09:00 10/14/17 08:59 09/16/17 08:10 1 MG Montelukast Sodium (Singulair Tab) 10 mg DAILY PO 09/14/17 09:00 10/14/17 08:59 09/16/17 08:09 10 MG Pantoprazole Sodium (Protonix Tab) 40 mg DAILY PO 09/14/17 09:00 10/14/17 08:59 09/16/17 08:08 40 MG Topiramate (Topamax Tab) 100 mg DAILY PO 09/14/17 09:00 10/14/17 08:59 09/16/17 08:09 100 MG Thiamine HCl (Vitamin B-1 Tab) 100 mg QAM PO 09/16/17 09:00 10/16/17 08:59 09/16/17 08:08 100 MG Multivitamins (Multivitamin Tab) 1 tab QAM PO 09/16/17 09:00 10/16/17 08:59 09/16/17 08:08 1 TAB Nicotine (Nicoderm Cq 21MG Patch) 1 patch QAM TD 09/13/17 15:15 10/13/17 15:14 09/16/17 08:09 1 PATCH Miscellaneous (Remove Nicoderm Patch) 1 ea HS N/A 09/13/17 21:00 10/13/17 20:59 09/15/17 21:45 1 EA Gabapentin (Neurontin Tab) 600 mg Q24H PO 09/17/17 06:00 09/17/17 06:01 Chlordiazepoxide (Librium Cap) 25 mg BID PO 09/14/17 21:00 10/14/17 20:59 09/16/17 08:06 25 MG Quetiapine Fumarate (seroQUEL TAB) 50 mg Q4H PRN PO 09/14/17 14:45 10/14/17 14:44 09/15/17 14:22 50 MG Nicotine Polacrilex (Nicorette 2MG Gum) not to exceed > 24 pie... Q1H PRN MT 09/14/17 21:45 10/14/17 14:29 09/15/17 17:26 1 PIECE
[2017-09-16] MEDS: DOXEPIN HCL 50 MG CAP PO SCH ×2 (20:44→22:06)
[2017-09-16] MEDS: ACETAMINOPHEN 325 MG TAB PO PRN (20:48)
[2017-09-17] VITALS (7 sets, daily range): BP systolic 95–130; BP diastolic 57–78; PULSE 60–107; TEMP 36.3–37.1; O2SAT 93–98
[2017-09-17] MEDS: LORAZEPAM 2 MG/ML 1 ML VIAL IV PRN ×2 (04:36→08:15)
[2017-09-17] MEDS ORDERED: GABAPENTIN 600MG X1 DOSE PO SCH (06:00)
[2017-09-17 06:22] LABS: HEMATOCRIT 36.6 % (37-47); HEMOGLOBIN 12.2 g/dL (12.0-16.0); MEAN CELL VOLUME 98.9 fL (80-100); MEAN CORPUSCULAR HGB CONC 33.3 g/dl (32-36); MEAN PLATELET VOLUME 12.6 fL (7.4-10.4); PLATELET COUNT 65 K/uL (130-400); RED CELL DISTRIBUTION WIDTH CV 13.6 % (11.5-14.5); RED CELL DISTRIBUTION WIDTH SD 49.1 fL (36.4-46.3); WHITE BLOOD COUNT 3.38 K/uL (4.8-10.8)
[2017-09-17 06:51] LABS: ALBUMIN 3.1 gm/dl (3.4-5.0); CALCIUM 8.4 mg/dl (8.5-10.1); CREATININE 0.75 mg/dl (0.60-1.20); POTASSIUM 3.6 mmol/L (3.5-5.1)
[2017-09-17 06:54] LABS: TOTAL PROTEIN 6.6 gm/dl (6.4-8.2)
[2017-09-17] MEDS: CHLORDIAZEPOXIDE 25 MG CAP PO SCH (08:15)
[2017-09-17] MEDS: MULTIVITAMIN TAB PO SCH (08:15)
[2017-09-17] MEDS: NICOTINE 21 MG/24 HR TDSY TD SCH (08:15)
[2017-09-17] MEDS: PANTOprazole SOD 40 MG TAB PO SCH (08:16)
[2017-09-17] MEDS: CYANOCOBALAMIN 500 MCG TAB (VIT B-12) PO SCH (08:16)
[2017-09-17] MEDS: MONTELUKAST SOD 10 MG TAB PO SCH (08:16)
[2017-09-17] MEDS: THIAMINE HCL 100 MG TAB PO SCH (08:16)
[2017-09-17] MEDS: TOPIRAMATE 100 MG TAB PO SCH (08:16)
[2017-09-17] MEDS ORDERED: LORAZEPAM 1 MG TAB PO PRN (08:30)
[2017-09-17] MEDS ORDERED: LORAZEPAM 2 MG/ML 1 ML VIAL IV PRN ×2 (08:30→18:30)
[2017-09-17] MEDS: D5W AND 1/2NSS + 20MEQ KCL 1,000 ML IV SCH (09:11)
[2017-09-17] MEDS ORDERED: LORAZEPAM INJ 1 MG in SYRINGE 0.5 ML IV PRN (09:45)
[2017-09-17] MEDS ORDERED: LORAZEPAM 1 MG TAB PO ONE (12:15)
--- NOTE | 2017-09-17 13:26 | Psychiatric Progress Notes ---
Psychiatric Progress Note Date of Service Sep 17, 2017. Notes 31 y/o F with alcohol dependence and bipolar disorder who is admitted for alcohol withdrawal. Psychiatry consulted for mood disorder. Patient seen today for follow up. CC: "Terrible." Interval History: Reviewed initial consult and interim progress notes. On 09/14, she tried to leave the hospital, and a 302 warrant was issued. Patient continues to score on the alcohol withdrawal protocol, and is on Librium and gabapentin tapers but also receiving multiple doses of lorazepam daily, 11mg total yesterday and 4mg so far today. She remains on IV fluids and on 1:1. She states "I can't keep it together," as her daughter was adopted out 2-3 months ago, and "I just kept drinking because I can't handle it. Can't sleep, night terrors, can't stop crying, grief." She admits that she tried to end her life by overdosing a couple of weeks ago. She denies SI currently and feels safe in the hospital, but feels overwhelmed, "I just want to curl up and cry." She hasn' t been able to contact any friends or family since admission, noting she just got her purse and phone, and the wifi doesn't work. She remains willing for psychiatric admission when medically cleared, but wants a smoking facility. Thin WF appearing stated age. Seated in bed in NAD eating lunch, dressed in a hospital gown and limited grooming/hygiene. Tearful but cooperative. Fair eye contact and no abnormal movements. Speech is normal rate and volume. Mood is "terrible," and affect is upset and congruent. Thoughts are goal directed. She denies SI but admits to feeling overwhelmed and hopeless, and a suicide attempt a couple of weeks prior to admission. No delusions or paranoia evident , and did not appear to be responding to internal stimuli. Cognition grossly intact. Insight and and judgment are impaired. Recommendations: 1. Bipolar disorder vs depression: Diagnosis unclear, has had multiple different mood disorder diagnoses in the past, complicated by poor follow up and chronic substance abuse. Will request records from her last psychiatrist, Dr. Hernandez, to clarify recent treatment. Admits to recent suicide attempt, depression and anxiety, and willing for a voluntary psychiatric admission to a smoking facility once medically cleared. These facilities ([facility] and [facility]) are both freestanding, and she will need to be through withdrawal, with stable vital signs, eating and drinking, ambulating and toileting independently, off all IVs, and medically stable for referral. She is still receiving IVFs. Agree with initial recs that ideally she would be treated in a dual diagnosis facility, as she has significant active substance abuse co- occurring (Onia, etc). She is on a 302 warrant, and whether treatment will be voluntary or involuntary will need to be determined at the time of medical clearance. 2. Alcohol dependence: Treatment of withdrawal per primary team. She is completing Librium and gabapentin tapers, but still requesting lorazepam numerous times daily. Consider discontinuing prn benzos and giving scheduled only for withdrawal. Continue to encourage dual diagnosis treatment to give her the best chance of recovery.
--- NOTE | 2017-09-17 15:10 | Progress Note ---
Medicine Progress Note Date & Time of Visit: Sep 17, 2017 at 14:51. Subjective Pt was seen and examined Lying in bed with no distress with 1 to 1 observation Pt said that tremor less He said that she is calling random names while sleeping She said that her mind seems to get a little clears today Denies any chest pain, hallucination, chest pain, palpitation Objective Last 8 Hrs Date Time Temp Pulse Resp B/P (MAP) Pulse Ox O2 Delivery O2 Flow Rate FiO2 09/17/17 12:00 Room Air 09/17/17 11:00 36.3 106 17 95/60 (72) 97 Room Air 09/17/17 08:00 Room Air 09/17/17 07:15 36.5 94 20 104/57 (73) 98 Room Air Physical Exam: General- no acute distress Head- atraumatic Eyes- PERRL, EOMI, No nystagmus ENT- oropharynx clear Neck- supple, no JVD Lungs- clear to auscultation Heart- regular rhythm Abdomen- normal bowel sounds, soft Extremities- no calf tenderness, +tremor improved Neuro- alert, oriented x 3; PERRL Skin- warm & dry Laboratory Results: Last 24 Hours Test 09/17/17 05:50 White Blood Count 3.38 K/uL Red Blood Count 3.70 M/uL Hemoglobin 12.2 g/dL Hematocrit 36.6 % Mean Corpuscular Volume 98.9 fL Mean Corpuscular Hemoglobin 33.0 pg Mean Corpuscular Hemoglobin Concent 33.3 g/dl RDW Standard Deviation 49.1 fL RDW Coefficient of Variation 13.6 % Platelet Count 65 K/uL Mean Platelet Volume 12.6 fL Sodium Level 137 mmol/L Potassium Level 3.6 mmol/L Chloride Level 107 mmol/L Carbon Dioxide Level 24 mmol/L Anion Gap 6.0 mmol/L Blood Urea Nitrogen 8 mg/dl Creatinine 0.75 mg/dl Est Creatinine Clear Calc Drug Dose 104.0 ml/min Estimated GFR () 121.4 Estimated GFR (Non- 104.7 BUN/Creatinine Ratio 10.2 Random Glucose 78 mg/dl Calcium Level 8.4 mg/dl Total Bilirubin 0.6 mg/dl Aspartate Amino Transf (AST/SGOT) 144 U/L Alanine Aminotransferase (ALT/SGPT) 165 U/L Alkaline Phosphatase 34 U/L Total Protein 6.6 gm/dl Albumin 3.1 gm/dl Globulin 3.5 gm/dl Albumin/Globulin Ratio 0.9 Assessment & Plan NEAR SYNCOPE Possible related orthostatic hypotension and Alcohol abuse CT head showed no intracranial abnormality Fall precaution Stable ALCOHOL WITHDRAWAL ETOH level on admission 147 in ER. On alcohol withdrawn protocol with gabapentin and ativan has been getting Ativan q1hr (CIWA) Adding Librium 25mg BIDx 2 days ( Will be cautious) Monitor closely for DT If become drowsy and hallucinates, will transfer to ICU for airway protection Continue thiamine and folic acid Continue seizure precaution and aspiration precautions Will benefit for inpatient alcohol rehab Will change librium to daily tomorrow Continue requiring Ativan prn 09/17 Will d/c Ativan IV Will start on Ativan Po q8H Continue gabapentin and Librium taper Continue monitor closely Interested in Alcohol inpatient rehab Clinically improved AMBULATORY DYSFUNCTION Fall precaution Continue PT/OT HYPOKALEMIA K stable Continue monitor BMP ELEVATED LIVER FUNCTIONS Hx HEPATITIS C ALT: 377 (baseline ~361) and AST: 285 (baseline ~228). Alk phos: 39. Last Abd CT on 03/2017 - hepatic steatosis Liver enzymes trending down Will be caution with Ativan and Librium Continue monitor LFT THROMBOCYTOPENIA Plt improved to 65 No active bleeding Monitor CBC HX IV DRUG ABUSE Pt reports being clean for past 5 years Urine tox screen negative for Marijuana and cocaine HX TOBACCO ABUSE Nicotine patch Counseling on smoking cessation Continue to crave to go smoke outside BIPOLAR DISORDER/ADHD/DEPRESSION Resumed Effexor and Topamax psych on board Denies any suicidal thought CURRENTLY Few weeks ago made a suicide attempt as per psych cannot sign AMA 302 maria eugeniaer's statement on the chart case discussed with psych today waiting for approval for inpatient psych treatment Would like to go to a psych facility where she can smoke ASTHMA continue albuterol inhaler prn Stable DVT Prophylaxis SCDs (Thrombocytopenia) Disposition Continue monitor in tele Consider inpatient alcohol rehab/ inpatient psych treatment Consultants: Psych Current Inpatient Medications: Current Inpatient Medications Medications (Trade) Dose Ordered Sig/Viky Route Start Time Stop Time Status Last Admin Dose Admin Acetaminophen (Tylenol Tab) 650 mg Q4H PRN PO 09/13/17 14:15 10/13/17 14:14 09/16/17 20:48 650 MG Magnesium Hydroxide (Milk Of Magnesia Susp) 30 ml Q12H PRN PO 09/13/17 14:15 10/13/17 14:14 Ondansetron HCl (Zofran Inj) 4 mg Q6H PRN IV 09/13/17 14:15 10/13/17 14:14 Potassium Chloride/Dextrose/ Sod Cl 1,000 ml @ 100 mls/hr Q10H IV 09/13/17 16:15 10/13/17 16:14 09/17/17 09:11 100 MLS/HR Albuterol (Ventolin Hfa Inhaler) 2 puffs QID PRN INH 09/13/17 14:30 10/13/17 14:29 Cyanocobalamin (Vitamin B-12 Tab) 1,000 mcg DAILY PO 09/14/17 09:00 10/14/17 08:59 09/17/17 08:16 1,000 MCG Doxepin HCl (Sinequan Cap) 50 mg HS PO 09/13/17 21:00 10/13/17 20:59 09/16/17 22:06 50 MG Folic Acid (Folvite Tab) 1 mg DAILY PO 09/14/17 09:00 10/14/17 08:59 09/17/17 08:16 1 MG Montelukast Sodium (Singulair Tab) 10 mg DAILY PO 09/14/17 09:00 10/14/17 08:59 09/17/17 08:16 10 MG Pantoprazole Sodium (Protonix Tab) 40 mg DAILY PO 09/14/17 09:00 10/14/17 08:59 09/17/17 08:16 40 MG Topiramate (Topamax Tab) 100 mg DAILY PO 09/14/17 09:00 10/14/17 08:59 09/17/17 08:16 100 MG Thiamine HCl (Vitamin B-1 Tab) 100 mg QAM PO 09/16/17 09:00 10/16/17 08:59 09/17/17 08:16 100 MG Multivitamins (Multivitamin Tab) 1 tab QAM PO 09/16/17 09:00 10/16/17 08:59 09/17/17 08:15 1 TAB Nicotine (Nicoderm Cq 21MG Patch) 1 patch QAM TD 09/13/17 15:15 10/13/17 15:14 09/17/17 08:15 1 PATCH Miscellaneous (Remove Nicoderm Patch) 1 ea HS N/A 09/13/17 21:00 10/13/17 20:59 09/15/17 21:45 1 EA Quetiapine Fumarate (seroQUEL TAB) 50 mg Q4H PRN PO 09/14/17 14:45 10/14/17 14:44 09/15/17 14:22 50 MG Nicotine Polacrilex (Nicorette 2MG Gum) not to exceed > 24 pie... Q1H PRN MT 09/14/17 21:45 10/14/17 14:29 09/15/17 17:26 1 PIECE Chlordiazepoxide (Librium Cap) 10 mg BID PO 09/17/17 21:00 10/17/17 20:59 Lorazepam 1 mg/ Syringe 1 ml @ 1 mls/min Q2HWA PRN IV 09/17/17 09:45 10/17/17 09:44
[2017-09-17] MEDS: QUETIAPINE FUMARATE 25 MG TAB PO PRN (18:12)
[2017-09-17] MEDS: LORAZEPAM 1 MG TAB PO SCH ×2 (19:38→22:01)
[2017-09-17] MEDS: DOXEPIN HCL 50 MG CAP PO SCH (20:34)
[2017-09-17] MEDS ORDERED: CHLORDIAZEPOXIDE 10 MG CAP PO SCH (21:00)
[2017-09-18 03:39] VITALS: BP 98/61; PULSE 90; TEMP 37.1; O2SAT 98
[2017-09-18] MEDS: LORAZEPAM 1 MG TAB PO SCH ×3 (05:32→21:52)
[2017-09-18 06:16] LABS: HEMATOCRIT 36.6 % (37-47); HEMOGLOBIN 11.8 g/dL (12.0-16.0); MEAN CORPUSCULAR HEMOGLOBIN 32.2 pg (25-34); MEAN CORPUSCULAR HGB CONC 32.2 g/dl (32-36); RED CELL DISTRIBUTION WIDTH CV 13.6 % (11.5-14.5); WHITE BLOOD COUNT 3.57 K/uL (4.8-10.8)
[2017-09-18 06:19] LABS: MEAN PLATELET VOLUME 11.9 fL (7.4-10.4); PLATELET COUNT 79 K/uL (130-400)
[2017-09-18 06:45] LABS: ALBUMIN 3.1 gm/dl (3.4-5.0); CALCIUM 8.1 mg/dl (8.5-10.1); CREATININE 0.84 mg/dl (0.60-1.20); POTASSIUM 3.4 mmol/L (3.5-5.1)
[2017-09-18 06:48] LABS: TOTAL PROTEIN 6.6 gm/dl (6.4-8.2)
[2017-09-18 08:08] VITALS: BP 90/48; PULSE 86; TEMP 36.8; O2SAT 98
[2017-09-18] MEDS: MULTIVITAMIN TAB PO SCH (09:29)
[2017-09-18] MEDS: PANTOprazole SOD 40 MG TAB PO SCH (09:29)
[2017-09-18] MEDS: TOPIRAMATE 100 MG TAB PO SCH (09:29)
[2017-09-18] MEDS: MONTELUKAST SOD 10 MG TAB PO SCH (09:29)
[2017-09-18] MEDS: THIAMINE HCL 100 MG TAB PO SCH (09:29)
[2017-09-18] MEDS: CYANOCOBALAMIN 500 MCG TAB (VIT B-12) PO SCH (09:30)
[2017-09-18] MEDS: NICOTINE 21 MG/24 HR TDSY TD SCH (09:30)
[2017-09-18] MEDS: QUETIAPINE FUMARATE 25 MG TAB PO PRN ×3 (10:03→20:07)
[2017-09-18 12:04] VITALS: BP 121/76; PULSE 97; TEMP 36.6; O2SAT 97
--- NOTE | 2017-09-18 13:44 | Progress Note ---
Medicine Progress Note Date & Time of Visit: Sep 18, 2017 at 13:30. Subjective Pt was seen examined Lying in bed with no distress Pt seems much calm today She is not crying or emotional this morning She said that she is ok to go to mental health in 3rd floor for inpatient psych treatment Denies any chest pain, palpitation, dizziness, hallucination and SOB Objective Last 8 Hrs Date Time Temp Pulse Resp B/P (MAP) Pulse Ox O2 Delivery O2 Flow Rate FiO2 09/18/17 12:04 36.6 97 20 121/76 (91) 97 Room Air 09/18/17 08:08 36.8 86 19 90/48 (62) 98 Room Air 09/18/17 08:00 Room Air Physical Exam: General- no acute distress Head- atraumatic Eyes- PERRL, EOMI, No nystagmus ENT- oropharynx clear Neck- supple, no JVD Lungs- clear to auscultation Heart- regular rhythm Abdomen- normal bowel sounds, soft Extremities- no calf tenderness, No tremor Neuro- alert, oriented x 3; PERRL Skin- warm & dry Laboratory Results: Last 24 Hours Test 09/18/17 06:03 White Blood Count 3.57 K/uL Red Blood Count 3.66 M/uL Hemoglobin 11.8 g/dL Hematocrit 36.6 % Mean Corpuscular Volume 100.0 fL Mean Corpuscular Hemoglobin 32.2 pg Mean Corpuscular Hemoglobin Concent 32.2 g/dl RDW Standard Deviation 49.0 fL RDW Coefficient of Variation 13.6 % Platelet Count 79 K/uL Mean Platelet Volume 11.9 fL Sodium Level 137 mmol/L Potassium Level 3.4 mmol/L Chloride Level 106 mmol/L Carbon Dioxide Level 23 mmol/L Anion Gap 8.0 mmol/L Blood Urea Nitrogen 11 mg/dl Creatinine 0.84 mg/dl Est Creatinine Clear Calc Drug Dose 92.9 ml/min Estimated GFR () 105.8 Estimated GFR (Non- 91.3 BUN/Creatinine Ratio 12.5 Random Glucose 104 mg/dl Calcium Level 8.1 mg/dl Total Bilirubin 0.4 mg/dl Aspartate Amino Transf (AST/SGOT) 141 U/L Alanine Aminotransferase (ALT/SGPT) 172 U/L Alkaline Phosphatase 34 U/L Total Protein 6.6 gm/dl Albumin 3.1 gm/dl Globulin 3.5 gm/dl Albumin/Globulin Ratio 0.9 Assessment & Plan NEAR SYNCOPE Possible related orthostatic hypotension and Alcohol abuse CT head showed no intracranial abnormality Fall precaution Stable ALCOHOL WITHDRAWAL ETOH level on admission 147 in ER. On alcohol withdrawn protocol with gabapentin and ativan has been getting Ativan q1hr (CIWA) Adding Librium 25mg BIDx 2 days ( Will be cautious) Monitor closely for DT If become drowsy and hallucinates, will transfer to ICU for airway protection Continue thiamine and folic acid Continue seizure precaution and aspiration precautions Will benefit for inpatient alcohol rehab Will change librium to daily tomorrow Continue requiring Ativan prn 09/18 Ativan IV discontinued on Ativan 1 mg Po q8H Complete gabapentin with alcohol withdraw protocol Interested in Alcohol inpatient rehab Counseling on alcohol cessation Medically stable to transfer to mental health unit for inpatient psych AMBULATORY DYSFUNCTION Fall precaution Continue PT/OT HYPOKALEMIA K replaced Continue monitor BMP ELEVATED LIVER FUNCTIONS Hx HEPATITIS C ALT: 377 (baseline ~361) and AST: 285 (baseline ~228). Alk phos: 39. Last Abd CT on 03/2017 - hepatic steatosis Liver enzymes trending down Will be caution with Ativan Continue monitor LFT THROMBOCYTOPENIA Plt improved to 79 No active bleeding Monitor CBC HX IV DRUG ABUSE Pt reports being clean for past 5 years Urine tox screen negative for Marijuana and cocaine HX TOBACCO ABUSE Nicotine patch Counseling on smoking cessation She said that she does not have any crave to go to smoke outside OK to transfer to the mental health unit in 3rd fl even though pt understands that it is not a smoking facility BIPOLAR DISORDER/ADHD/DEPRESSION Resumed Effexor and Topamax psych on board Denies any suicidal thought CURRENTLY Few weeks ago made a suicide attempt as per psych cannot sign AMA 302 petitioner's statement on the chart case discussed with psych today waiting for approval for inpatient psych treatment Pt is ok to go to any psych facility (Does not care about smoke or smoke free) ASTHMA continue albuterol inhaler prn Stable DVT Prophylaxis SCDs (Thrombocytopenia) Disposition Consider inpatient alcohol rehab/ inpatient psych treatment Medically stable to transfer to the mental health unit for inpatient psych Consultants: Psych Current Inpatient Medications: Current Inpatient Medications Medications (Trade) Dose Ordered Sig/Viky Route Start Time Stop Time Status Last Admin Dose Admin Acetaminophen (Tylenol Tab) 650 mg Q4H PRN PO 09/13/17 14:15 10/13/17 14:14 09/16/17 20:48 650 MG Magnesium Hydroxide (Milk Of Magnesia Susp) 30 ml Q12H PRN PO 09/13/17 14:15 10/13/17 14:14 Ondansetron HCl (Zofran Inj) 4 mg Q6H PRN IV 09/13/17 14:15 10/13/17 14:14 Albuterol (Ventolin Hfa Inhaler) 2 puffs QID PRN INH 09/13/17 14:30 10/13/17 14:29 Cyanocobalamin (Vitamin B-12 Tab) 1,000 mcg DAILY PO 09/14/17 09:00 10/14/17 08:59 09/18/17 09:30 1,000 MCG Doxepin HCl (Sinequan Cap) 50 mg HS PO 09/13/17 21:00 10/13/17 20:59 09/17/17 20:34 50 MG Folic Acid (Folvite Tab) 1 mg DAILY PO 09/14/17 09:00 10/14/17 08:59 09/18/17 09:30 1 MG Montelukast Sodium (Singulair Tab) 10 mg DAILY PO 09/14/17 09:00 10/14/17 08:59 09/18/17 09:29 10 MG Pantoprazole Sodium (Protonix Tab) 40 mg DAILY PO 09/14/17 09:00 10/14/17 08:59 09/18/17 09:29 40 MG Topiramate (Topamax Tab) 100 mg DAILY PO 09/14/17 09:00 10/14/17 08:59 09/18/17 09:29 100 MG Thiamine HCl (Vitamin B-1 Tab) 100 mg QAM PO 09/16/17 09:00 10/16/17 08:59 09/18/17 09:29 100 MG Multivitamins (Multivitamin Tab) 1 tab QAM PO 09/16/17 09:00 10/16/17 08:59 09/18/17 09:29 1 TAB Nicotine (Nicoderm Cq 21MG Patch) 1 patch QAM TD 09/13/17 15:15 10/13/17 15:14 09/18/17 09:30 1 PATCH Miscellaneous (Remove Nicoderm Patch) 1 ea HS N/A 09/13/17 21:00 10/13/17 20:59 09/17/17 20:34 1 EA Quetiapine Fumarate (seroQUEL TAB) 50 mg Q4H PRN PO 09/14/17 14:45 10/14/17 14:44 09/18/17 10:03 50 MG Nicotine Polacrilex (Nicorette 2MG Gum) not to exceed > 24 pie... Q1H PRN MT 09/14/17 21:45 10/14/17 14:29 09/15/17 17:26 1 PIECE Lorazepam 1 mg/ Syringe 1 ml @ 1 mls/min Q2HWA PRN IV 09/17/17 09:45 10/17/17 09:44 Lorazepam (Ativan Tab) 1 mg Q8 PO 09/17/17 20:00 10/17/17 19:59 09/18/17 05:32 1 MG Lorazepam (Ativan Inj) 1 mg Q12 PRN IV 09/17/17 18:30 10/17/17 18:29
[2017-09-18] MEDS ORDERED: POTASSIUM CHLORIDE 20 MEQ TABCR PO ONE (13:45)
[2017-09-18 15:31] VITALS: BP 108/60; PULSE 98; TEMP 36.6; O2SAT 98
[2017-09-18] MEDS: DOXEPIN HCL 50 MG CAP PO SCH (21:52)
[2017-09-18] MEDS ORDERED: ATV1 PO ×2 (21:55→22:04)
--- NOTE | 2017-09-18 22:03 | Discharge Instructions ---
Discharge Instructions Date of Service Sep 18, 2017. Admission Reason for Admission: Alcohol Withdrawal; Near Syncope Discharge Discharge Diagnosis / Problem: Alcohol withdrawn/Depression/ Anxiety/ Elevated liver enzymes Discharge Goals Goal(s): Decrease discomfort, Improve function, Improve disease control Activity Recommendations Activity Limitations: resume your previous activity (as tolerated) . Instructions / Follow-Up Instructions / Follow-Up Will transfer to mental health unit for inpatient psych Follow up with your primary care provider once discharge from psych Wean off Ativan as per psych team management Counseling on alcohol cessation counseling on smoking cessation Avoid hepatotoxic agents Monitor Liver enzymes fall precaution Current Hospital Diet Patient's current hospital diet: Regular Diet Discharge Diet Recommended Diet: Regular Diet Pending Studies Studies pending at discharge: no Medical Emergencies . Who to Call and When: Medical Emergencies: If at any time you feel your situation is an emergency, please call 911 immediately. . Non-Emergent Contact Non-Emergency issues call your: Primary Care Provider Call Non-Emergent contact if: you have any medication questions . . "Provider Documentation" section prepared by Jade Ny. .
[2017-09-18] MEDS ORDERED: SRQ25 PO (22:04)
[2017-09-18 22:43] VITALS: BP 102/58; PULSE 111; TEMP 36.5; O2SAT 97
[2017-09-18 22:46] VITALS: BP 102/58; PULSE 111; TEMP 36.5; O2SAT 97
--- NOTE | 2017-09-20 23:29 | Discharge Summary ---
Discharge Summary Date of Service Sep 20, 2017. Discharge Summary Admission Date: Sep 13, 2017 at 14:18 Discharge Date: Sep 18, 2017 Discharge Disposition: Acute care mental health Principal Diagnosis: ALCOHOL WITHDRAWAL Secondary Diagnoses/Problems: NEAR SYNCOPE AMBULATORY DYSFUNCTION ELEVATED LIVER ENZYMES HYPOKALEMIA THROMBOCYTOPENIA BIPOLAR DISORDER ADHD DEPRESSION TOBACCO ABUSE HX IV DRUG ABUSE ASTHMA Procedures: HEAD WITHOUT CONTRAST (CT) CT DOSE: 638.56 mGycm HISTORY: Mental status change eval for bleed TECHNIQUE: Multiaxial CT images of the head were performed without the use of intravenous contrast. A dose lowering technique was utilized adhering to the principles of ALARA. Comparison: None. Findings: The paranasal sinuses and mastoid air cells are clear. The calvarium and skull base are intact. The ventricles and sulci are within normal limits. There is no mass, hematoma, midline shift, or acute infarct. Impression: No acute intracranial abnormality. The above report was generated using voice recognition software. It may contain grammatical, syntax or spelling errors. Electronically signed by: Eric Muñoz M.D. 09/13/2017 11:15 AM Dictated Date/Time: 09/13/2017 11:04 AM [~ rep ct add3]] CHEST 2 VIEWS ROUTINE CLINICAL HISTORY: Dizziness, syncope. COMPARISON STUDY: 08/17/2015 FINDINGS: The cardiac and mediastinal contours are normal. There is no evidence of focal pulmonary consolidation. There is no evidence of failure. No pleural effusions are visualized.[ IMPRESSION: No active disease in the chest. Electronically signed by: Mynor Sharma M.D. 09/13/2017 12:01 PM Dictated Date/Time: 09/13/2017 12:00 PM Consultations: Psych Medication Reconciliation New Medications: Lorazepam (Lorazepam) 1 Mg Tab 1 MG PO Q8H for 2 Days, #6 TAB weaning dose Quetiapine Fumarate (Quetiapine Fumarate) 25 Mg Tab 50 MG PO Q4H PRN for agitation for 2 Days, #16 TAB Continued Medications: Albuterol Hfa (Ventolin Hfa) 200 Puffs/00699 Mcg Aers 2 PUFFS INH QID PRN for SOB/Wheezing, #1 INHALER Cyanocobalamin (Vitamin B-12) 1,000 Mcg Tab 1000 MCG PO DAILY, TAB Doxepin (Sinequan) 50 Mg Cap 50 MG PO HS, CAP Folic Acid (Folic Acid) 1 Mg Tab 1 TAB PO DAILY Montelukast Sod (Montelukast Sodium) 10 Mg Tab 10 MG PO DAILY Pantoprazole (Protonix) 40 Mg Tab 40 MG PO DAILY, #30 TAB Topiramate (Topiramate) 100 Mg Tab 100 MG PO BID Discontinued Medications: Venlafaxine Hcl (Effexor) 75 Mg Tab 75 MG PO TID Admission Information HPI (per Admitting provider): Pt is 31 y/o F with PMH alcoholism, bipolar, ADHD, hepatitis C, MTHFR mutation, asthma presented to ER with chief complaint of near syncopal event. Patient reports this morning came inside after smoking a cigarette when she felt very lightheaded and felt like she is going to pass out and states fell to her knees. Denies hitting head or complete LOC. Had not eaten breakfast yet. Denies hx syncope in past. Last ETOH drink midnight. Reports tremors since this morning. Since in ER reports generalized MONTOYA. Patient reports drinking fifth of vodka daily for the past 3-4 weeks, previously was drinking a pint/day. Patient reports history of multiple times in the past quitting including rehab in April and attempted self detox the end of July with Librium for 3-4 days and naltrexone however only took naltrexone for approximately 2 days and stopped. Patient reports history of seizures with alcohol withdrawal in the past. Patient reports has not been taking her Effexor or Topamax secondary to "drinking too much". She denies any jose symptoms and denies any suicidal ideations. Patient would like to restart medications. Patient reports history of fatty liver. Patient denies any current drug use, reports being clean for the past 5 years was previous IV drug user. Patient smokes half to 1 pack cigarettes daily for approximately 20 years. Denies recent illness. Denies fever /chills, diaphoresis, N/V/D/C, vision changes, neck pain, CP, SOB, orthopnea, palpitations, cough, sore throat, choking, otalgia, rhinorrhea, abdominal pain, paresthesias, extremity edema, rashes, urinary symptoms. Physical Exam (per Admitting): General Appearance: WD/WN, no apparent distress, + pertinent finding ( appears older than stated age) Head: normocephalic, atraumatic Eyes: normal inspection, PERRL, EOMI, sclerae normal ENT: hearing grossly normal, pharynx normal, + pertinent finding (mucous membranes dry. tongue without lacerations) Neck: supple, trachea midline Respiratory/Chest: normal breath sounds, no respiratory distress, + pertinent finding (coarse breath sounds, no wheezing or rhonchi) Cardiovascular: regular rate, rhythm (rate high 90's), no murmur, normal peripheral pulses Abdomen/GI: normal bowel sounds, non tender, soft Extremities/Musculoskelatal: no calf tenderness, normal capillary refill, no pedal edema, normal range of motion, non-tender Neurologic/Psych: alert, normal mood/affect, oriented x 3, + pertinent finding (+tremors noted) Skin: normal color, warm/dry Hospital Course ALCOHOL WITHDRAWAL ETOH level on admission 147 in ER. On alcohol withdrawn protocol with gabapentin and ativan has been getting Ativan q1hr (CIWA) Adding Librium 25mg BIDx 2 days ( Will be cautious) Monitor closely for DT If become drowsy and hallucinates, will transfer to ICU for airway protection Continue thiamine and folic acid Continue seizure precaution and aspiration precautions Will benefit for inpatient alcohol rehab Will change librium to daily tomorrow Continue requiring Ativan prn 4/3 Ativan IV discontinued on Ativan 1 mg Po q8H Complete gabapentin with alcohol withdraw protocol Interested in Alcohol inpatient rehab Counseling on alcohol cessation Medically stable to transfer to mental health unit for inpatient psych AMBULATORY DYSFUNCTION Fall precaution Continue PT/OT NEAR SYNCOPE Possible related orthostatic hypotension and Alcohol abuse CT head showed no intracranial abnormality Fall precaution Stable HYPOKALEMIA K replaced Continue monitor BMP ELEVATED LIVER FUNCTIONS Hx HEPATITIS C ALT: 377 (baseline ~361) and AST: 285 (baseline ~228). Alk phos: 39. Last Abd CT on 03/2017 - hepatic steatosis Liver enzymes trending down Will be caution with Ativan Continue monitor LFT THROMBOCYTOPENIA Plt improved to 79 No active bleeding Monitor CBC HX IV DRUG ABUSE Pt reports being clean for past 5 years Urine tox screen negative for Marijuana and cocaine HX TOBACCO ABUSE Nicotine patch Counseling on smoking cessation She said that she does not have any crave to go to smoke outside OK to transfer to the mental health unit in 3rd fl even though pt understands that it is not a smoking facility BIPOLAR DISORDER/ADHD/DEPRESSION Resumed Effexor and Topamax psych on board Denies any suicidal thought CURRENTLY Few weeks ago made a suicide attempt as per psych cannot sign AMA 302 petitioner's statement on the chart case discussed with psych today waiting for approval for inpatient psych treatment Pt is ok to go to any psych facility (Does not care about smoke or smoke free) ASTHMA continue albuterol inhaler prn Stable DVT Prophylaxis SCDs (Thrombocytopenia) Disposition Consider inpatient alcohol rehab/ inpatient psych treatment Medically stable to transfer to the mental health unit for inpatient psych Total time spent on discharge = 35 minutes This includes examination of the patient, discharge planning, medication reconciliation, and communication with other providers. Discharge Instructions Discharge Instructions Date of Service Sep 18, 2017. Admission Reason for Admission: Alcohol Withdrawal; Near Syncope Discharge Discharge Diagnosis / Problem: Alcohol withdrawn/Depression/ Anxiety/ Elevated liver enzymes Discharge Goals Goal(s): Decrease discomfort, Improve function, Improve disease control Activity Recommendations Activity Limitations: resume your previous activity (as tolerated) . Instructions / Follow-Up Instructions / Follow-Up Will transfer to mental health unit for inpatient psych Follow up with your primary care provider once discharge from psych Wean off Ativan as per psych team management Counseling on alcohol cessation counseling on smoking cessation Avoid hepatotoxic agents Monitor Liver enzymes fall precaution Current Hospital Diet Patient's current hospital diet: Regular Diet Discharge Diet Recommended Diet: Regular Diet Pending Studies Studies pending at discharge: no Medical Emergencies . Who to Call and When: Medical Emergencies: If at any time you feel your situation is an emergency, please call 911 immediately. . Non-Emergent Contact Non-Emergency issues call your: Primary Care Provider Call Non-Emergent contact if: you have any medication questions . . "Provider Documentation" section prepared by Jade Ny. . Additional Copies To Parag Burrell M.D.
== END 2017-09-18 22:56 | DRG 897 ==
LOC: C.EDB 09:06 → C.2E 14:18 → ENRESERV 14:22 → CANBEDREQ 15:17 → ENRESERV 15:21
PROVIDERS: ADMIT Internal Medicine; ATTEND Internal Medicine
DX: F10.239 Alcohol dependence with withdrawal, unspecified (principal); F31.81 Bipolar II disorder; I95.1 Orthostatic hypotension; R26.2 Difficulty in walking, not elsewhere classified; E87.6 Hypokalemia; R51 Headache; R94.5 Abnormal results of liver function studies; D69.6 Thrombocytopenia, unspecified; B18.2 Chronic viral hepatitis C; F90.9 Attention-deficit hyperactivity disorder, unspecified type; J45.909 Unspecified asthma, uncomplicated; F11.11 Opioid abuse, in remission; F14.11 Cocaine abuse, in remission; F12.11 Cannabis abuse, in remission; F17.210 Nicotine dependence, cigarettes, uncomplicated; Z79.899 Other long term (current) drug therapy; Y90.9 Presence of alcohol in blood, level not specified; Z91.81 History of falling; Z91.5 Personal history of self-harm; Z86.718 Personal history of other venous thrombosis and embolism; Z88.8 Allergy status to other drugs, medicaments and biological substances; Z82.49 Family history of ischemic heart disease and other diseases of the circulatory system; Z83.3 Family history of diabetes mellitus

== ENCOUNTER 2017-09-18 23:08 | Inpatient (IN) | payer OTHER ==
[~2017-09-18] VITALS: Ht 162.6 cm; Wt 67.7 kg
[~2017-09-18 23:08] MED LIST changes: -ALBUAER19 INH; +ATV1 PO; -CITA40TA4 PO; -CLR10 PO; -CTP/1 PO; -CYAN10004 PO; +CYAN10005 PO; -DICY10CA12 PO; +DOXE50CA3 PO; +EFF75 PO; -FLUT220A INH; -GABA600T PO; -METH10SO PO; +PANT40TA PO; +SNG10 PO; +SRQ25 PO; -THIA100T11 PO; +TPM100 PO; -VNCS125 PO; +VNTHFA/IN INH
[2017-09-18] MEDS ORDERED: NURSING VERBAL MED ORDER ONE (23:15)
[2017-09-18 23:25] VITALS: BP 102/58; PULSE 110; TEMP 36.5; Ht 162.6 cm; Wt 67.7 kg
[2017-09-18] MEDS ORDERED: ACETAMINOPHEN 325 MG TAB PO PRN (23:45)
[2017-09-18] MEDS ORDERED: SODIUM CHLORIDE 0.65% NA SOLN 45 ML (OCEAN) PRN (23:45)
[2017-09-18] MEDS ORDERED: BISMUTH SUBSALICYLATE PER ML OMNICELL CHARGE PO PRN (23:45)
[2017-09-18] MEDS ORDERED: MAGNESIUM HYDROXIDE SUSP 30 ML UDC PO PRN (23:45)
[2017-09-18] MEDS ORDERED: ALBUTEROL HFA 8 GM INHALER INH PRN (23:45)
[2017-09-18] MEDS ORDERED: ALUMINUM/MAGNESIUM SUSP 30 ML UDC PO PRN (23:45)
[2017-09-18] MEDS ORDERED: LORAZEPAM 1 MG TAB PO PRN (23:45)
[2017-09-19 06:50] VITALS: BP_SYST 97; BP_SYST 99; BP_DIAS 64; BP_DIAS 67; PULSE 80; PULSE 86; TEMP 36.6
[2017-09-19] MEDS: QUETIAPINE FUMARATE 25 MG TAB PO PRN ×2 (10:09→14:34)
[2017-09-19] MEDS ORDERED: VENLAFAXINE HCL XR 75 MG CAPXR PO ONE (11:02)
[2017-09-19] MEDS ORDERED: NICOTINE 21 MG/24 HR TDSY TD ONE (11:02)
--- NOTE | 2017-09-19 11:02 | Allied Health Admission Assmnt ---
History Date of Service Sep 19, 2017. Identifying Data Mary Barber is a 31-year-old female admitted voluntarilyon Sep 18, 2017 at 23: 08 from the medical floor when she had been due to alcohol withdrawal. She is admitted following a suicide attempt several weeks ago, and ongoing severe depression with SI. Information is gathered from the patient and considered to be reliable. Chief Complaint "I think I have PTSD. ". History of Present Illness The patient is a 31-year-old woman who initially presented to the emergency department with alcohol withdrawal. She admitted to have been drinking 1/5 of vodka a day. She was admitted medically for detox where she remained for 5 days. She was medically cleared for mental health treatment yesterday and after having been declined by Shelley Najera, she was admitted to our unit voluntarily last evening. The patient has multiple stressors in her life. Her primary stress is that UOY-0-cqfu-old daughter who had been in foster care, was permanently adopted at about 3 months ago and all parental ties severed. She has a 7-year-old son who is in the custody of his father. She has been homeless , using the resources of [employer] [place] and most recently sleeping on the couch of a friend. Over the course of years, she has had many losses in her life including having found both parents and having lost other friends from overdoses. All of these losses have led her to believe that she has PTSD and now describes herself as a "complete isolator". She avoids allowing people to get close to her for fear she will lose them as well. She admits that several weeks ago, she made a suicide attempt by taking a handful of doxepin with alcohol. She reports that her roommate found her laying on the floor, neither of them brought the overdose to medical or psychiatric attention. She is not currently in any psychiatric care and describes that in recent weeks her mood has been "all over the place". She reports that she continues to have suicidal thinking "here and there". She reports a difficult sleep, getting only 2-3 hours per night, frequently waking with nightmares, crying and screaming. She reports impaired appetite having lost at least 5 pounds in the last month. Her anxiety is described as "terrible" with panic attacks occur about twice per week and are triggered by "anything". She notes that she avoids crowds, for example going to stores were there will be large numbers of people, "I hate it". She denies any clear symptoms of bipolar disorder saying that she will have about 1 day per month where she thinks "I can do this" but denies discrete episodes of euphoric mood, sleeplessness or pleasure seeking behaviors. Past Psychiatric History Current OP Treatment: no current treatment Prior OP Treatment: psychiatrist (Dr. Hernandez) Prior Psych Hospitalizations: [place], other ([place]) Access to a Gun: No Suicide Attempts: Yes (several weeks ago by overdose) Past Medication Trials Celexa, depakote, Vyvanse, ativan, prozac, buspar, lamictal, seroquel, effexor, ambien, ability, adderall, strattera, klonopin, valium, neurontin Past Medical/Surgical History History of Concussion/Seizure: No (1) Hepatitis C (2) Tobacco abuse (3) MTHFR mutation Allergies Allergies: Coded Allergies: Metoclopramide (Verified Adverse Reaction, Intermediate, RASH, 09/13/17) Home Medications Scheduled Cyanocobalamin (Vitamin B-12), 1,000 MCG PO DAILY Doxepin (Sinequan), 50 MG PO HS Folic Acid (Folic Acid), 1 TAB PO DAILY Lorazepam (Lorazepam), 1 MG PO Q8H Montelukast Sod (Montelukast Sodium), 10 MG PO DAILY Pantoprazole (Protonix), 40 MG PO DAILY Topiramate (Topiramate), 100 MG PO BID Scheduled PRN Albuterol Hfa (Ventolin Hfa), 2 PUFFS INH QID PRN for SOB/Wheezing Quetiapine Fumarate (Quetiapine Fumarate), 50 MG PO Q4H PRN for agitation Family History Blood clots AUNT PGM Diabetes mellitus MGF PGF FH: cancer FH: lung disease FHx: gallbladder disease History of Suicide: No History of Substance Abuse: Yes (father alcohol, sister drugs) Psychiatric History: Yes (sister depression) Alcohol Use Alcohol Use In Past 12 Months: Yes (approx a fifth of vodka daily, last use ) AUDIT Total Score: 32 Had been drinking a fifth of vodka daily Smoking Use Smoking Status: Current Every Day Smoker 1 PPD Substance History hx of cocaine, methadone, cannabis. Has been in many rehabs, last Apr 2017, was not able to maintain sobriety for more than a month or so. Personal History Lives in: Is currently homeless, [facility] Childhood: Raised by her grandmother, both parents are . One sister with whom she has no relationship because sister is active with her addictions. Education: graduated from high school, started college Work History: Last employed by [employer] Relationship History: never Children: 2 children, a 2-year-old daughter who recently was adopted out and a 7-year Spiritual Affiliation: None Legal History: none Psychological Trauma History: Significant Loss Review of Systems Constitutional: denies no symptoms reported, denies see HPI, denies chills, denies diaphoresis, denies fever, denies malaise, denies weakness, denies other Eyes: denies: no symptoms, as stated in HPI, eye pain, tearing, itching, redness, discharge, double vision, visual changes, blurred vision, photophobia, other ENT: denies: no symptoms reported, see HPI, ear pain, ear discharge, loss of hearing, tinnitus, nasal pain, nasal congestion, rhinorrhea, epistaxis, sore throat, stidor, throat swelling, mouth pain, mouth swelling, dental pain, gum swelling, other Cardiovascular: reports: chest pain (with panic) Respiratory: reports: short of breath (with panic) Gastrointestinal: denies no symptoms reported, denies see HPI, denies abdominal pain, denies constipation, denies diarrhea, denies nausea, denies vomiting, denies other Genitourinary - Female: denies: no symptoms, see HPI, rash, amenorrhea, dysmenorrhea, menorrhagia, metrorrhagia, , vaginal bleeding, vaginal itching, vaginal discharge, vulvadynia, other Musculoskeletal: denies no symptoms reported, denies see HPI, denies back pain , denies gout, denies joint pain, denies joint swelling, denies muscle pain, denies muscle stiffness, denies neck pain, denies other Integumentary: denies no symptoms reported, denies see HPI, denies change in color, denies change in hair/nails, denies dryness, denies lesions, denies lumps , denies rash, denies other Neurologic: denies: no symptoms, see HPI, headache, numbness, paresthesias, pre -existing deficit, seizure, tingling, tremors, general weakness, tics, focal weakness, vertigo, lethargy, memory loss, dizziness, other Endocrine: denies: no symptoms, as stated in HPI, cold intolerance, heat intolerance, hair changes, goiter, polydipsia, polyuria, skin changes, other Hematologic / Lymphatic: denies: no symptoms, as stated in HPI, abnormal clotting, adenopathy, anemia, easy bleeding, easy bruising, gums bleeding, petechiae, other Examination Physical Examination Exam performed by Dr. Ny on the medical floor has been reviewed and accepted as medical clearance for our unit. Vital Signs Vital Signs Past 12 Hours Date Time Temp Pulse Resp B/P (MAP) Pulse Ox O2 Delivery O2 Flow Rate FiO2 09/19/17 06:50 36.6 80 14 97/64 86 99/67 09/18/17 23:25 36.5 110 18 102/58 Laboratory Results Done while on the medical floor Mental Examination During interview pt is: alert and oriented, cooperative Appearance: appropriately dressed, disheveled Eye contact is: good Motor behavior is: steady gait & station, no abnormal motor movements Speech: normal in rate, rhythm & volume Affect: depressed, flat Mood is: depressed Thought process: goal directed Thought content: reality based without delusions Suicidal thought are: present, Plan: denied, Intent: denied Homicidal thoughts are: denied Hallucinations: denies auditory, denies visual Cognition: memory grossly intact, attention grossly intact, language grossly intact Intelligence estimated to be: average Insight: impaired Judgement: impaired Impression / Recommendations Impression 31-year-old woman admitted on transfer from the medical floor. She is admitted for treatment of severe depression and suicidality following an overdose attempt several weeks ago. She has significant stressors in her life and would like to be able to engage in mental health treatment, not just substance use treatment which she feels has been ineffective in the past to deal with her stressors. We will refer her for both psychiatric care and therapy. I have recommended that she return to rehab however the patient is refusing to do so since she has been there many times in think she needs to return to AA and outpatient treatment. I have reviewed her medications and she believes that the most effective medication was Effexor which she was on most recently. It appears she may have been on Effexor I are because of some stomach problems we will start her on Effexor XR 75 mg daily and re-titrate. We will use Vistaril as needed for anxiety and sleep. We had ordered Seroquel 50 mg every 4 hours as needed while on the medical floor and we will continue this for now in the event of severe insomnia but I have encouraged her to invest time in learning healthy coping strategies that do not involve reaching for drugs or alcohol. We will order a nicotine patch since she smokes one pack a day. She is through the detox. And no AVERY S will be necessary at this time. I will notify her outpatient PCP that we have discontinued doxepin due to concerns for its lethality and overdose. At this time, the patient requires inpatient mental health treatment due to the severity of her condition and the risk for self- harm if discharged. Inventory Assets Strengths: Willingness to engage in treatment, level of her children Needs: To abstain from all drugs and alcohol Risk Factors Assessment : Yes /single/: Yes Higher / Fall in social status: No Access to guns: No Health problems: Yes Mental Health Diagnoses: Yes Substance use disorders: Yes Previous attempt: Yes Previous psychiatric stay: Yes Hopelessness: Yes Smoker: Yes Protective Factors Assessment Yazidi beliefs: No : No Responsible for young children: No Employed: No Stable relationships: No Supportive family: No Good rapport with provider: No Absence of risk factors above: No Recommendations (1) Persistent mood [affective] disorder, unspecified 09/19/17 - Restart Effexor XR 75 mg. daily - Vistaril prn sleep or anxiety - Will continue Seroquel 50 mg. q4h prn for now but have encouraged her to work toward healthy behavioral coping strategies - Q 15 min checks for safety - Encourage participation in group and individual counseling - Will need psychiatric follow up - Assist the patient to learn and utilize healthy coping strategies (2) Alcohol dependence 09/19/17 - Recovery protocol - Recommend inpatient rehab which the patient is refusing. Therefore recommend OP treatment and AA 90 in 90 - The patient's AUDIT score suggests problematic drinking (Zone III WHO). Brief intervention was offered and accepted Intervention (if performed) was greater than 5 min in length. Brief interventions include: 1. Assess Readiness to Quit, 2. Advise: Help Patient to Reduce or Abstain from Alcohol, 3. Agree: Set Specific, Feasible Goals, 4. Assist: Anticipate barriers, Problem-Solving Solutions. Social work to 5. Arrange: Referrals to appropriate treatment. Summary of intervention: The patient is in contemplation stage with regards to transtheoretical model of change. The patient is advised to decrease alcohol consumption due to depressant effects and risk of interactions with prescription medications. The patient agreed to outpatient treatment but no inpatient rehab and will be provided with recovery materials to continue to education self on how to cope with their condition without drinking. (3) Tobacco abuse 09/19/17 - Recommend abstinence of reduction - Will provide Nicotine patch [address] Nisha Garland has personally been involved in this case and development of these recommendations. CPT Code Initial Hospital Care: 73654
[2017-09-19] MEDS: hydrOXYzine HCL 25 MG TAB PO PRN ×2 (12:29→16:55)
--- NOTE | 2017-09-19 12:45 | Psychiatric History & Physical ---
History Date of Service Sep 19, 2017. Identifying Data Mary Barber is a 31-year-old female admitted voluntarilyon Sep 18, 2017 at 23: 08 from the medical floor when she had been due to alcohol withdrawal. She is admitted following a suicide attempt several weeks ago, and ongoing severe depression with SI. Information is gathered from the patient and considered to be reliable. Chief Complaint "I feel like crap ". History of Present Illness Patient seen for admission, chart reviewed; she is known to me from previous admissions and recent consultation on the medical service prior to transfer to the behavioral health unit. Per initial assessment by MARQUITA Ojeda: The patient is a 31-year-old woman who initially presented to the emergency department with alcohol withdrawal. She admitted to have been drinking 1/5 of vodka a day. She was admitted medically for detox where she remained for 5 days. She was medically cleared for mental health treatment yesterday and after having been declined by Shelley Najera, she was admitted to our unit voluntarily last evening. The patient has multiple stressors in her life. Her primary stress is that VPO-8-vohd-old daughter who had been in foster care, was permanently adopted at about 3 months ago and all parental ties severed. She has a 7-year-old son who is in the custody of his father. She has been homeless , using the resources of [facility] [place] and most recently sleeping on the couch of a friend. Over the course of years, she has had many losses in her life including having found both parents and having lost other friends from overdoses. All of these losses have led her to believe that she has PTSD and now describes herself as a "complete isolator". She avoids allowing people to get close to her for fear she will lose them as well. She admits that several weeks ago, she made a suicide attempt by taking a handful of doxepin with alcohol. She reports that her roommate found her laying on the floor, neither of them brought the overdose to medical or psychiatric attention. She is not currently in any psychiatric care and describes that in recent weeks her mood has been "all over the place". She reports that she continues to have suicidal thinking "here and there". She reports a difficult sleep, getting only 2-3 hours per night, frequently waking with nightmares, crying and screaming. She reports impaired appetite having lost at least 5 pounds in the last month. Her anxiety is described as "terrible" with panic attacks occur about twice per week and are triggered by "anything". She notes that she avoids crowds, for example going to stores were there will be large numbers of people, "I hate it". She denies any clear symptoms of bipolar disorder saying that she will have about 1 day per month where she thinks "I can do this" but denies discrete episodes of euphoric mood, sleeplessness or pleasure seeking behaviors. On my assessment, the patient states that she is feeling very anxious, "I do not know what to do with myself." She recognizes that this is in large part due to recent sobriety, stating that she typically drinks heavily to deal with these feelings. She further admits to poor compliance with mental health treatment, having been off of medications for months, and not in therapy. She is refusing recommendations for inpatient rehab to address her severe substance abuse, feeling that she needs instead an individual therapist to work on what she believes is PTSD from multiple losses. Past Psychiatric History Current OP Treatment: no current treatment Prior OP Treatment: psychiatrist (Dr. Hernandez -[place] in 2016, record scanned in) Prior Psych Hospitalizations: [place], other ([place]) Access to a Gun: No Suicide Attempts: Yes (several weeks ago by overdose) Past Medication Trials Celexa, depakote, Vyvanse, ativan, prozac, buspar, lamictal, seroquel, effexor, ambien, ability, adderall, strattera, klonopin, valium, neurontin Past Medical/Surgical History History of Concussion/Seizure: No Allergies Allergies: Coded Allergies: Metoclopramide (Verified Adverse Reaction, Intermediate, RASH, 09/13/17) Home Medications Scheduled Cyanocobalamin (Vitamin B-12), 1,000 MCG PO DAILY Doxepin (Sinequan), 50 MG PO HS Folic Acid (Folic Acid), 1 TAB PO DAILY Lorazepam (Lorazepam), 1 MG PO Q8H Montelukast Sod (Montelukast Sodium), 10 MG PO DAILY Pantoprazole (Protonix), 40 MG PO DAILY Topiramate (Topiramate), 100 MG PO BID Scheduled PRN Albuterol Hfa (Ventolin Hfa), 2 PUFFS INH QID PRN for SOB/Wheezing Quetiapine Fumarate (Quetiapine Fumarate), 50 MG PO Q4H PRN for agitation Family History Blood clots AUNT PGM Diabetes mellitus MGF PGF FH: cancer FH: lung disease FHx: gallbladder disease History of Suicide: No History of Substance Abuse: Yes (Father alcohol, sister drugs) Psychiatric History: Yes (Sister depression) Alcohol Use Alcohol Use In Past 12 Months: Yes (approx a fifth of vodka daily, last use ; admitted to the ICU with severe withdrawal symptoms.) AUDIT Total Score: 32 Smoking Use Smoking Status: Current Every Day Smoker (1 pack per day) Substance History hx of cocaine, methadone, cannabis. Has been in many rehabs, last Apr 2017, was not able to maintain sobriety for more than a month or so. Personal History Lives in: Is currently homeless, staying at the [facility] Childhood: Raised by her grandmother, both parents are . One sister with whom she has no relationship because sister is active with her addictions. Education: graduated from high school, started college Work History: Unemployed, last job was at [employer]. Relationship History: never Children: 2 children, a 2-year-old daughter who recently was adopted out and a 7-year Spiritual Affiliation: None Legal History: none Psychological Trauma History: Significant Loss Review of Systems 10 systems reviewed; positive for chest pain and shortness of breath with panic attacks, others negative except as stated above. Examination Physical Examination A physical exam was performed on the medical floor prior to admission to the unit by Dr. Ny. I accept that physical as correct/medical clearance for the inpatient physical exam. Vital Signs Vital Signs Past 12 Hours Date Time Temp Pulse Resp B/P (MAP) Pulse Ox O2 Delivery O2 Flow Rate FiO2 09/19/17 06:50 36.6 80 14 97/64 86 99/67 Mental Examination During interview pt is: alert and oriented, cooperative Appearance: appropriately dressed, disheveled Eye contact is: good Motor behavior is: steady gait & station, no abnormal motor movements Speech: normal in rate, rhythm & volume Affect: depressed, flat, anxious Mood is: depressed, anxious Thought process: goal directed Thought content: reality based without delusions Suicidal thought are: present, Plan: denied, Intent: denied Homicidal thoughts are: denied Hallucinations: denies auditory, denies visual Cognition: memory grossly intact, attention grossly intact, language grossly intact Intelligence estimated to be: average Insight: impaired Judgement: impaired Impression / Recommendations Impression 31-year-old woman admitted on transfer from the medical floor. She is admitted for treatment of severe depression and suicidality following a suicide attempt by overdose several weeks ago, which she did not seek treatment for. She has numerous significant stressors in her life, and would like to be able to engage in mental health treatment, not just substance use treatment, which she feels has been ineffective in the past to deal with her stressors. We will refer her for both psychiatric care and therapy. We have recommended that she return to rehab to address her severe substance abuse issues, but she is refusing to do so since she has been there many times, and would rather return to AA and outpatient treatment. She believes that the most effective medication was Effexor, which she was on most recently, and it has been resumed here at 75 mg. We will use Vistaril as needed for anxiety and sleep. We had ordered Seroquel 50 mg every 4 hours as needed while on the medical floor and we will continue this for now in the event of severe anxiety and insomnia, but have encouraged her to invest time in learning healthy coping strategies that do not involve reaching for drugs or alcohol. She was detoxed on the medical floor, so no AWSS will be necessary at this time. Staff will contact her outpatient PCP to notify him that we have discontinued doxepin due to concerns for its lethality and overdose. At this time, the patient requires inpatient mental health treatment due to the severity of her condition and the risk for self- harm if discharged. Inventory Assets Strengths: Willingness to engage in treatment, level of her children Needs: To abstain from all drugs and alcohol Risk Factors Assessment : Yes /single/: Yes Higher / Fall in social status: No Access to guns: No Health problems: Yes Mental Health Diagnoses: Yes Substance use disorders: Yes Previous attempt: Yes Previous attempt;highly lethal: Yes Previous attempt; didn't tell: Yes Family history of suicide: No Previous psychiatric stay: Yes Hopelessness: Yes Smoker: Yes Protective Factors Assessment Bahai beliefs: No : No Responsible for young children: No Employed: No Stable relationships: No Supportive family: No Good rapport with provider: No Absence of risk factors above: No Recommendations (1) Persistent mood [affective] disorder, unspecified 09/19/17 - Restart Effexor XR 75 mg. daily. Does not get a history that clearly supports bipolar disorder, and difficult to make that diagnosis given the chronic and severe substance abuse and likely personality component. - Vistaril prn sleep or anxiety - Will continue Seroquel 50 mg. q4h prn for now but have encouraged her to work toward healthy behavioral coping strategies - Q 15 min checks for safety - Encourage participation in group and individual counseling - Will need psychiatric follow up - Assist the patient to learn and utilize healthy coping strategies -Doxepin discontinued due to overdose, and will coordinate care with her PCP , Dr. Burrell in [place], to review suicide risk and med recommendations. (2) Alcohol dependence 09/19/17 - Recovery protocol - Recommend inpatient rehab which the patient is refusing. Therefore recommend OP treatment and AA 90 in -Consider naltrexone, which was recently prescribed by her PCP - The patient's AUDIT score suggests problematic drinking (Zone III WHO). Brief intervention was offered and accepted Intervention (if performed) was greater than 5 min in length. Brief interventions include: 1. Assess Readiness to Quit, 2. Advise: Help Patient to Reduce or Abstain from Alcohol, 3. Agree: Set Specific, Feasible Goals, 4. Assist: Anticipate barriers, Problem-Solving Solutions. Social work to 5. Arrange: Referrals to appropriate treatment. Summary of intervention: The patient is in contemplation stage with regards to transtheoretical model of change. The patient is advised to decrease alcohol consumption due to depressant effects and risk of interactions with prescription medications. The patient agreed to outpatient treatment but no inpatient rehab and will be provided with recovery materials to continue to education self on how to cope with their condition without drinking. (3) Tobacco abuse 09/19/17 - Recommend she consider quitting, or at least cutting back - Will provide Nicotine patch 21 mg daily for cravings CPT Code Initial Hospital Care: [id number]
[2017-09-20 06:59] VITALS: BP_SYST 109; BP_SYST 99; BP_DIAS 70; BP_DIAS 71; PULSE 78; PULSE 80; TEMP 36.5
[2017-09-20] MEDS: NICOTINE 21 MG/24 HR TDSY TD SCH (08:12)
[2017-09-20] MEDS: QUETIAPINE FUMARATE 25 MG TAB PO PRN ×3 (08:12→18:22)
[2017-09-20] MEDS ORDERED: VENLAFAXINE HCL XR 75 MG CAPXR PO SCH ×2 (09:00→22:00)
--- NOTE | 2017-09-20 12:33 | Psychiatric Progress Notes ---
Progress Note Date of Service Sep 20, 2017. Interval History 31-year-old woman admitted on transfer from the medical floor. She is admitted for treatment of severe depression and suicidality following a suicide attempt by overdose several weeks ago, which she did not seek treatment for. Chief Complaint "Why did you take my ativan away?". Subjective Patient was seen & assessed interval progress reviewed with Treatment Team. the patient starts by asking about her BZD, and why they were dicontinuied which was explained to her. I asked what behavioral strategies she was employing to deal with the anxiety, and she said that she was distracting herself with coloring, but couldn't think of anything else. We reviewed some mindfulness strategies, with one thought stopping exercise, to which she rolled her eyes. she has been using the prn Seroquel, but thinks its either not a large enough dose or not close enough together. Was reminded that Seroquel can cause you to gain weight, which she said she did when she was on it before (40 lbs). She says that her mood today is "OK", and is denying SI. she is certain that her friend Shahla will continue to allow her to stay with her after discharge. Nursing reports that the patient has been a negative force in the milieu, complaining about staff and her treatment. Mary says that she had the best sleep she has had in a long while, last night. Appetite is good. Review of Systems Constitutional: No fever, No chills, No sweats, No weight loss, No weakness, No fatigue, No problem reported ENT: No hearing loss, No unusual epistaxis, No nasal symptoms, No sore throat, No tinnitus, No dental problems, No trouble swallowing, No problem reported Respiratory: No cough, No sputum, No wheezing, No shortness of breath, No dyspnea on exertion, No dyspnea at rest, No hemoptysis, No problem reported Cardiovascular: No chest pain, No orthopnea, No PND, No edema, No claudication , No palpitations, No problem reported Abdomen: No pain, No nausea, No vomiting, No diarrhea, No constipation, No GI bleeding, No problem reported Musculoskeletal: No joint pain, No muscle pain, No swelling, No calf pain, No problem reported Neurologic: No memory loss, No paralysis, No weakness, No numbness/tingling, No vertigo, No balance problems, No problem reported Psychiatric: + depression symptoms, + anxiety Integumentary: No rash, No itch, No new/changing skin lesions, No color change , No bleeding, No problem reported Sleep Information Total Hours of Sleep: 9.50 Meal Information Percent of Breakfast Consumed: 100 Percent of Lunch Consumed: 90 Percent of Dinner Consumed: 90 Mental Status Exam During interview pt is: alert and oriented, cooperative Appearance: appropriately dressed Eye contact is: good Motor behavior is: steady gait & station, no abnormal motor movements Speech: normal in rate, rhythm & volume Affect: depressed, flat, anxious Mood is: depressed, anxious Thought process: goal directed Thought content: reality based without delusions Suicidal thought are: denied, Plan: denied, Intent: denied Homicidal thoughts are: denied Hallucinations: denies auditory, denies visual Cognition: memory grossly intact, attention grossly intact, language grossly intact Intelligence estimated to be: average Insight: limited Judgement: limited Impression Adjusting to the structure and support of the milieu, but is quite med seeking and resistant to other coping strategies. We will continue to remind her that she is here to focus on her treatment, and that it is counter therapeutic to engage others in staff bashing and other behaviors designed to generate negativity. Will increase Seroquel to 75 mg. q 4 h prn, but no further as I would like to not send her home with this if possible as I am concern for its abuse potential. Vistaril is available to her. She has agreed to restart Naltrexone, as she and her PCP have talked about proceed with Vivitrol injections but is not formulary here. She is complaining the the Effexor makes her tired and so will convert to HS. Plan (1) Persistent mood [affective] disorder, unspecified 09/19/17 - Restart Effexor XR 75 mg. daily. Does not get a history that clearly supports bipolar disorder, and difficult to make that diagnosis given the chronic and severe substance abuse and likely personality component. - Vistaril prn sleep or anxiety - Will continue Seroquel 50 mg. q4h prn for now but have encouraged her to work toward healthy behavioral coping strategies - Q 15 min checks for safety - Encourage participation in group and individual counseling - Will need psychiatric follow up - Assist the patient to learn and utilize healthy coping strategies -Doxepin discontinued due to overdose, and will coordinate care with her PCP , Dr. Burrell in [place], to review suicide risk and med recommendations. 09/20 - Move Effexor XR 75 mg. to HS starting tonigh (will get total 150 mg today) - Remind patient to focus on her own treatment (2) Alcohol dependence 09/19/17 - Recovery protocol - Recommend inpatient rehab which the patient is refusing. Therefore recommend OP treatment and AA 90 in -Consider naltrexone, which was recently prescribed by her PCP - The patient's AUDIT score suggests problematic drinking (Zone III WHO). Brief intervention was offered and accepted Intervention (if performed) was greater than 5 min in length. Brief interventions include: 1. Assess Readiness to Quit, 2. Advise: Help Patient to Reduce or Abstain from Alcohol, 3. Agree: Set Specific, Feasible Goals, 4. Assist: Anticipate barriers, Problem-Solving Solutions. Social work to 5. Arrange: Referrals to appropriate treatment. Summary of intervention: The patient is in contemplation stage with regards to transtheoretical model of change. The patient is advised to decrease alcohol consumption due to depressant effects and risk of interactions with prescription medications. The patient agreed to outpatient treatment but no inpatient rehab and will be provided with recovery materials to continue to education self on how to cope with their condition without drinking. 09/20 - Still refusing rehab - Naltrexone is nonformulary, so will defer to outpatient (3) Tobacco abuse 09/19/17 - Recommend she consider quitting, or at least cutting back - Will provide Nicotine patch 21 mg daily for cravings Discharge / Aftercare Planning Primary Care Physician: Name: Dr. Burrell Psychiatrist: Name: Dr. Hernandez Date of Appointment: Sep 27, 2017 Time of Appointment: 11:45 Therapist: Name: [facility], will be scheduled after your appt on 09/27 Hem Inspector: Name: none Visit Code E&M Code: 81886 Inventory Assets Strengths: Willingness to engage in treatment, level of her children Needs: To abstain from all drugs and alcohol Risk Factors Assessment : Yes /single/: Yes Higher / Fall in social status: No Health problems: Yes Mental Health Diagnoses: Yes Substance use disorders: Yes Previous attempt: Yes Previous attempt;highly lethal: Yes Previous attempt; didn't tell: Yes Family history of suicide: No Previous psychiatric stay: Yes Hopelessness: Yes Smoker: Yes Protective Factors Assessment Sikhism beliefs: No : No Responsible for young children: No Employed: No Stable relationships: No Supportive family: No Good rapport with provider: No Absence of risk factors above: No Data Vital Signs Last 24 Hrs: Date Time Temp Pulse Resp B/P (MAP) Pulse Ox O2 Delivery O2 Flow Rate FiO2 09/20/17 06:59 36.5 80 16 109/71 78 99/70 Meds Administered Last 24 Hrs: Meds Administered (Past 24Hrs) Medications (Trade) Dose Ordered Sig/Viky Route Start Time Stop Time Status Last Admin Dose Admin Lorazepam (Ativan Tab) 1 mg Q8H PRN PO 09/18/17 23:45 09/19/17 11:04 DC 09/19/17 08:28 1 MG Quetiapine Fumarate (seroQUEL TAB) 50 mg Q4H PRN PO 09/18/17 23:45 10/18/17 23:44 09/20/17 08:12 50 MG Venlafaxine HCl (effeXOR EXTENDED REL CAP) 75 mg QAM PO 09/20/17 09:00 10/20/17 08:59 09/20/17 08:12 75 MG Venlafaxine HCl (effeXOR EXTENDED REL CAP) 75 mg 1102 ONCE PO 09/19/17 11:02 09/19/17 11:12 DC 09/19/17 12:26 75 MG Nicotine (Nicoderm Cq 21MG Patch) 1 patch QAM TD 09/20/17 09:00 10/20/17 08:59 09/20/17 08:12 1 PATCH Nicotine (Nicoderm Cq 21MG Patch) 1 patch 1102 ONCE TD 09/19/17 11:02 09/19/17 11:12 DC 09/19/17 13:48 1 PATCH Hydroxyzine HCl (Vistaril Tab) 25 mg Q4H PRN PO 09/19/17 11:15 10/19/17 11:14 09/19/17 16:55 25 MG
[2017-09-21 06:38] VITALS: BP_SYST 105; BP_SYST 99; BP_DIAS 67; BP_DIAS 71; PULSE 75; PULSE 86; TEMP 36.8
[2017-09-21] MEDS: QUETIAPINE FUMARATE 25 MG TAB PO PRN ×4 (07:13→19:34)
[2017-09-21] MEDS: NICOTINE 21 MG/24 HR TDSY TD SCH (09:53)
--- NOTE | 2017-09-21 09:56 | Psych Management Progress Note ---
Psychiatry Miscellaneous Date of Service: Sep 21, 2017. Patient seen, MS assessed. Rates mood as 9/10 and excited. Encouraged cooperation with care and treatment plan as outlined by allied health prescriber. She is amenable to outpatient therapy (psychiatrist already scheduled).
[2017-09-21] MEDS: hydrOXYzine HCL 25 MG TAB PO PRN ×3 (13:05→21:43)
[2017-09-21] MEDS: VENLAFAXINE HCL XR 150 MG CAPXR PO SCH (13:58)
--- NOTE | 2017-09-21 14:57 | Psychiatric Progress Notes ---
Progress Note Date of Service Sep 21, 2017. Interval History 31-year-old woman admitted on transfer from the medical floor. She is admitted for treatment of severe depression and suicidality following a suicide attempt by overdose several weeks ago, which she did not seek treatment for. Chief Complaint "I have a few things to talk with you about". Subjective Patient was seen & assessed interval progress reviewed with Treatment Team. Staff reports they have been made aware of DUI charges and hearing on 10/03/17, as this is reported to be the patient's 4th DUI. Pt continues to refuse family meeting. Fasting labs drawn this morning and are wnl. Pt was seen today to assess progress since admission. Pt requests addition of Topamax, Folic acid, and B12 to her medication list as she states the Topamax is for migraine prophylaxis and the folic acid/B12 are for MTHFR. Pt also requests that her Effexor be dose in the morning, as she was kept awake last evening and now feels it is not the cause of her fatigue during the day. Pt also requests increase of Seroquel as she feels it is not helping her. Pt was asked about the symptoms she experiences prior to taking Seroquel to which she states, "I feel restless, like not worried or anxious, just like I need to keep moving." Pt was encouraged to try more regular dosing of hydroxyzine if necessary for restlessness as there is concern for risk of abuse of Seroquel given the patient 's history. Pt denies SI or other psychiatric concerns today. Review of Systems Psych: denies symptoms other than stated above Constitutional: denied Cardiovascular: denied GI: denied Neurologic: denied Remainder of 10 body systems also reviewed and denied other than noted above. Sleep Information Total Hours of Sleep: 6.75 Meal Information Percent of Breakfast Consumed: 100 Percent of Lunch Consumed: 100 Percent of Dinner Consumed: 100 Mental Status Exam During interview pt is: alert and oriented, cooperative Appearance: appropriately dressed, appropriately groomed (recently showered) Eye contact is: good Motor behavior is: steady gait & station, no abnormal motor movements Speech: normal in rate, rhythm & volume Affect: depressed, flat Mood is: depressed Thought process: goal directed Thought content: reality based without delusions Suicidal thought are: denied, Plan: denied, Intent: denied Homicidal thoughts are: denied Hallucinations: denies auditory, denies visual Cognition: memory grossly intact, attention grossly intact, language grossly intact Intelligence estimated to be: average Insight: limited Judgement: limited Impression Pt continues med seeking behaviors, Topamax, Folic acid, and B12 added for migraine prophylaxis and history of MTHFR. Pt requests increase of Seroquel which she is aware will not happen on the unit. Pt encouraged to try healthy coping strategies initially, but may use hydroxyzine more frequently if "restlessness" is overwhelming. Effexor 150mg started this afternoon and will be moved back to morning as she states bedtime dosing did cause issues for her last evening. Fasting labs reviewed and are wnl. Plan (1) Persistent mood [affective] disorder, unspecified 09/19/17 - Restart Effexor XR 75 mg. daily. Does not get a history that clearly supports bipolar disorder, and difficult to make that diagnosis given the chronic and severe substance abuse and likely personality component. - Vistaril prn sleep or anxiety - Will continue Seroquel 50 mg. q4h prn for now but have encouraged her to work toward healthy behavioral coping strategies - Q 15 min checks for safety - Encourage participation in group and individual counseling - Will need psychiatric follow up - Assist the patient to learn and utilize healthy coping strategies -Doxepin discontinued due to overdose, and will coordinate care with her PCP , Dr. Burrell in [place], to review suicide risk and med recommendations. 09/20 - Move Effexor XR 75 mg. to HS starting tonigh (will get total 150 mg today) - Remind patient to focus on her own treatment 09/21 - One-time dose of Effexor 150mg given today; start 150mg qAM tomorrow morning - Encouraged distraction techniques for restfulness, prn Vistaril as needed (2) Alcohol dependence 09/19/17 - Recovery protocol - Recommend inpatient rehab which the patient is refusing. Therefore recommend OP treatment and AA 90 in -Consider naltrexone, which was recently prescribed by her PCP - The patient's AUDIT score suggests problematic drinking (Zone III WHO). Brief intervention was offered and accepted Intervention (if performed) was greater than 5 min in length. Brief interventions include: 1. Assess Readiness to Quit, 2. Advise: Help Patient to Reduce or Abstain from Alcohol, 3. Agree: Set Specific, Feasible Goals, 4. Assist: Anticipate barriers, Problem-Solving Solutions. Social work to 5. Arrange: Referrals to appropriate treatment. Summary of intervention: The patient is in contemplation stage with regards to transtheoretical model of change. The patient is advised to decrease alcohol consumption due to depressant effects and risk of interactions with prescription medications. The patient agreed to outpatient treatment but no inpatient rehab and will be provided with recovery materials to continue to education self on how to cope with their condition without drinking. 09/20 - Still refusing rehab - Naltrexone is nonformulary, so will defer to outpatient (3) Tobacco abuse 09/19/17 - Recommend she consider quitting, or at least cutting back - Will provide Nicotine patch 21 mg daily for cravings Discharge / Aftercare Planning Primary Care Physician: Name: Dr. Burrell Psychiatrist: Name: Dr. Hernandez Date of Appointment: Sep 27, 2017 Time of Appointment: 11:45 Therapist: Name: [facility], will be scheduled after your appt on 09/27 Nib Finisher: Name: none Visit Code E&M Code: 30671 Inventory Assets Strengths: Willingness to engage in treatment, level of her children Needs: To abstain from all drugs and alcohol Risk Factors Assessment : Yes /single/: Yes Higher / Fall in social status: No Health problems: Yes Mental Health Diagnoses: Yes Substance use disorders: Yes Previous attempt: Yes Previous attempt;highly lethal: Yes Previous attempt; didn't tell: Yes Family history of suicide: No Previous psychiatric stay: Yes Hopelessness: Yes Smoker: Yes Protective Factors Assessment Jain beliefs: No : No Responsible for young children: No Employed: No Stable relationships: No Supportive family: No Good rapport with provider: No Absence of risk factors above: No Data Vital Signs Last 24 Hrs: Date Time Temp Pulse Resp B/P (MAP) Pulse Ox O2 Delivery O2 Flow Rate FiO2 09/21/17 06:38 36.8 75 16 99/67 86 105/71 Meds Administered Last 24 Hrs: Meds Administered (Past 24Hrs) Medications (Trade) Dose Ordered Sig/Viky Route Start Time Stop Time Status Last Admin Dose Admin Venlafaxine HCl (effeXOR EXTENDED REL CAP) 75 mg QAM PO 09/20/17 09:00 09/20/17 12:39 DC 09/20/17 08:12 75 MG Nicotine (Nicoderm Cq 21MG Patch) 1 patch QAM TD 09/20/17 09:00 10/20/17 08:59 09/21/17 09:53 1 PATCH Venlafaxine HCl (effeXOR EXTENDED REL CAP) 75 mg HS PO 09/20/17 22:00 09/21/17 12:48 DC 09/20/17 21:10 75 MG Quetiapine Fumarate (seroQUEL TAB) 75 mg Q4H PRN PO 09/20/17 12:45 10/20/17 12:44 09/21/17 11:13 75 MG Venlafaxine HCl (effeXOR EXTENDED REL CAP) 150 mg QAM PO 09/21/17 13:00 10/20/17 08:59 09/21/17 13:58 150 MG Lab Results Last 24 Hrs: Last 24 Hours Test 09/21/17 07:25 Fasting Glucose 84 mg/dl Triglycerides Level 55 mg/dl Cholesterol Level 136 mg/dl HDL Cholesterol 68 mg/dl LDL Cholesterol, Calculated 57 mg/dl VLDL Cholesterol, Calculated 11 mg/dl Cholesterol/HDL Ratio 2.0
[2017-09-21] MEDS: TOPIRAMATE 100 MG TAB PO SCH (15:13)
[2017-09-21] MEDS: CYANOCOBALAMIN 500 MCG TAB (VIT B-12) PO SCH (15:14)
[2017-09-22 06:49] VITALS: BP_SYST 114; BP_SYST 98; BP_DIAS 64; BP_DIAS 74; PULSE 72; PULSE 76; TEMP 36.8
[2017-09-22] MEDS: VENLAFAXINE HCL XR 150 MG CAPXR PO SCH (08:13)
[2017-09-22] MEDS: TOPIRAMATE 100 MG TAB PO SCH (08:13)
[2017-09-22] MEDS: CYANOCOBALAMIN 500 MCG TAB (VIT B-12) PO SCH (08:13)
[2017-09-22] MEDS: NICOTINE 21 MG/24 HR TDSY TD SCH (08:15)
[2017-09-22] MEDS: QUETIAPINE FUMARATE 25 MG TAB PO PRN ×3 (08:31→17:43)
[2017-09-22] MEDS: hydrOXYzine HCL 25 MG TAB PO PRN ×4 (10:37→22:10)
--- NOTE | 2017-09-22 10:54 | Psychiatric Progress Notes ---
Progress Note Date of Service Sep 22, 2017. Interval History 31-year-old woman admitted on transfer from the medical floor. She is admitted for treatment of severe depression and suicidality following a suicide attempt by overdose several weeks ago, which she did not seek treatment for. Chief Complaint ""I'm doing better". Subjective Patient was seen & assessed interval progress reviewed with Treatment Team. The patient reports that her main issue is anxiety. She describes her anxiety as "restlessness, racing heart" and reports "it is through the roof". She states the Seroquel and the Vistaril has not done anything to help her anxiety. She reports even her dreams make her feel anxious stating she "dreams about being anxious with heart rates of 400 - 500" She cannot determine a trigger for her anxiety. She states she has always been anxious, restless and bored and feels her best when incarcerated as her stress levels are low and she doesn't worry. She states "I'm almost institutionalized" in context of how better life is for her on the inside than on the outside. She also reports that being incarcerated keeps her from drinking. She is aware that she has an upcoming court date for her 4th DUI. She denies feeling worried as it will be "easy" for her since she has been incarcerated for 1 year at [facility]. She reports sobriety of 1 year in [place] and 3 months post realize.She got herself a job at [employer] which she liked. But, she finds herself getting bored so she tends to seek out her vices and thus fell of the wagon and got the DUI. She states her mood is "good" and rates it a 9/10. She is sleeping and eating well. She likes the structure of the unit. She reports a source of her problems most recently is the loss of custody for her 2 year old. She reports really being mad at herself and beating herself up over allowing her child to be adopted. She is hopeful that the adoptive parents will come around and allow her to be in her daughter life. She denies SI/HI plan or intent. Denies jose, hypomania or psychosis symptoms of A/V hallucinations, delusions. Review of Systems Psych: denies symptoms other than stated above Constitutional: denied Cardiovascular: denied GI: denied Neurologic: denied Remainder of 10 body systems also reviewed and denied other than noted above. Sleep Information Total Hours of Sleep: 6.50 Meal Information Percent of Breakfast Consumed: 100 Percent of Lunch Consumed: 100 Percent of Dinner Consumed: 100 Mental Status Exam During interview pt is: alert and oriented, cooperative Appearance: appropriately dressed, appropriately groomed (recently showered) Eye contact is: good Motor behavior is: steady gait & station, no abnormal motor movements Speech: normal in rate, rhythm & volume Affect: depressed, anxious Mood is: depressed Thought process: goal directed Thought content: reality based without delusions Suicidal thought are: denied, Plan: denied, Intent: denied Homicidal thoughts are: denied Hallucinations: denies auditory, denies visual Cognition: memory grossly intact, attention grossly intact, language grossly intact Intelligence estimated to be: average Insight: limited Judgement: limited Impression Pt reports mood is good but anxiety is worsened. She reports liking structure on the unit and admits that being incarcerated is a good thing for her as structure lends itself to controlling her risky behaviors. Continues with limited insight and judgement about vices and legal issues. Also reports Seroquel and Vistaril prns are not helping her anxiety. I encouraged her to continue with the medications as prescribed on the unit. She did not ask for an increase in Seroquel from me today. Tolerating meds without side effect. She continues with Topamax, Folic acid, and B12 for migraine prophylaxis and history of MTHFR. Pt encouraged to try healthy coping strategies with use of hydroxyzine more frequently if anxiety and "restlessness" feel overwhelming. Effexor 150mg started this afternoon and will be moved back to morning as she states bedtime dosing did cause issues for her last evening. Fasting labs reviewed with the patient today and are wnl. Plan (1) Persistent mood [affective] disorder, unspecified 09/19/17 - Restart Effexor XR 75 mg. daily. Does not get a history that clearly supports bipolar disorder, and difficult to make that diagnosis given the chronic and severe substance abuse and likely personality component. - Vistaril prn sleep or anxiety - Will continue Seroquel 50 mg. q4h prn for now but have encouraged her to work toward healthy behavioral coping strategies - Q 15 min checks for safety - Encourage participation in group and individual counseling - Will need psychiatric follow up - Assist the patient to learn and utilize healthy coping strategies -Doxepin discontinued due to overdose, and will coordinate care with her PCP , Dr. Burrell in [place], to review suicide risk and med recommendations. 09/20 - Move Effexor XR 75 mg. to HS starting tonigh (will get total 150 mg today) - Remind patient to focus on her own treatment 09/21 - One-time dose of Effexor 150mg given today; start 150mg qAM tomorrow morning - Encouraged distraction techniques for restfulness, prn Vistaril as needed (2) Alcohol dependence 09/19/17 - Recovery protocol - Recommend inpatient rehab which the patient is refusing. Therefore recommend OP treatment and AA 90 in -Consider naltrexone, which was recently prescribed by her PCP - The patient's AUDIT score suggests problematic drinking (Zone III WHO). Brief intervention was offered and accepted Intervention (if performed) was greater than 5 min in length. Brief interventions include: 1. Assess Readiness to Quit, 2. Advise: Help Patient to Reduce or Abstain from Alcohol, 3. Agree: Set Specific, Feasible Goals, 4. Assist: Anticipate barriers, Problem-Solving Solutions. Social work to 5. Arrange: Referrals to appropriate treatment. Summary of intervention: The patient is in contemplation stage with regards to transtheoretical model of change. The patient is advised to decrease alcohol consumption due to depressant effects and risk of interactions with prescription medications. The patient agreed to outpatient treatment but no inpatient rehab and will be provided with recovery materials to continue to education self on how to cope with their condition without drinking. 09/20 - Still refusing rehab - Naltrexone is nonformulary, so will defer to outpatient 09/22 - does not want rehab. Feels "institutionalized helps her best" in context of incarceration. (3) Tobacco abuse 09/19/17 - Recommend she consider quitting, or at least cutting back - Will provide Nicotine patch 21 mg daily for cravings Discharge / Aftercare Planning Primary Care Physician: Name: Dr. Burrell Phone Number: [phone] Appointment Notes: As needed Psychiatrist: Name: Dr. Hernandez Date of Appointment: Sep 27, 2017 Time of Appointment: 11:45 Therapist: Name: [facility], will be scheduled after your appt on 09/27 [place]: Name: [facility] Appointment Notes: They will call you directly to schedule Visit Code E&M Code: 38417 Inventory Assets Strengths: Willingness to engage in treatment, level of her children Needs: To abstain from all drugs and alcohol Risk Factors Assessment : Yes /single/: Yes Higher / Fall in social status: No Health problems: Yes Mental Health Diagnoses: Yes Substance use disorders: Yes Previous attempt: Yes Previous attempt;highly lethal: Yes Previous attempt; didn't tell: Yes Family history of suicide: No Previous psychiatric stay: Yes Hopelessness: Yes Smoker: Yes Protective Factors Assessment Uatsdin beliefs: No : No Responsible for young children: No Employed: No Stable relationships: No Supportive family: No Good rapport with provider: No Absence of risk factors above: No Data Vital Signs Last 24 Hrs: Date Time Temp Pulse Resp B/P (MAP) Pulse Ox O2 Delivery O2 Flow Rate FiO2 09/22/17 06:49 36.8 72 16 114/74 76 98/64 Meds Administered Last 24 Hrs: Meds Administered (Past 24Hrs) Medications (Trade) Dose Ordered Sig/Viky Route Start Time Stop Time Status Last Admin Dose Admin Venlafaxine HCl (effeXOR EXTENDED REL CAP) 75 mg HS PO 09/20/17 22:00 09/21/17 12:48 DC 09/20/17 21:10 75 MG Quetiapine Fumarate (seroQUEL TAB) 75 mg Q4H PRN PO 09/20/17 12:45 10/20/17 12:44 09/22/17 08:31 75 MG Venlafaxine HCl (effeXOR EXTENDED REL CAP) 150 mg QAM PO 09/21/17 13:00 10/20/17 08:59 09/22/17 08:13 150 MG Topiramate (Topamax Tab) 100 mg QAM PO 09/22/17 09:00 10/22/17 08:59 09/22/17 08:13 100 MG Folic Acid (Folvite Tab) 1 mg QAM PO 09/22/17 09:00 10/22/17 08:59 09/22/17 08:13 1 MG Cyanocobalamin (Vitamin B-12 Tab) 1,000 mcg QAM PO 09/22/17 09:00 10/22/17 08:59 09/22/17 08:13 1,000 MCG
[2017-09-23 06:41] VITALS: BP_SYST 109; BP_SYST 110; BP_DIAS 69; BP_DIAS 73; PULSE 68; PULSE 73; TEMP 36.7
[2017-09-23] MEDS: QUETIAPINE FUMARATE 25 MG TAB PO PRN ×2 (08:19→12:11)
[2017-09-23] MEDS: VENLAFAXINE HCL XR 150 MG CAPXR PO SCH (08:46)
[2017-09-23] MEDS: TOPIRAMATE 100 MG TAB PO SCH (08:46)
[2017-09-23] MEDS: CYANOCOBALAMIN 500 MCG TAB (VIT B-12) PO SCH (08:47)
[2017-09-23] MEDS: NICOTINE 21 MG/24 HR TDSY TD SCH (08:48)
--- NOTE | 2017-09-23 09:53 | Discharge Instructions ---
Discharge Information Report Includes Report will include the: Discharge Instructions & Summary Admission Admission Date / Time: Sep 18, 2017 at 23:08 Reason for Admission: Mood Disorder Nos Discharge Discharge Diagnosis / Problem: Mood Disorder Condition at Discharge: Good Discharge Goals Goal(s): Improve function, Increase independence Activity Recommendations Activity Limitations: resume your previous activity . Instructions / Follow-Up Instructions / Follow-Up . SPECIAL CARE INSTRUCTIONS: 1. Follow through with your scheduled aftercare appointments. If unable to keep an appointment, please call to reschedule. 2. Take your medication only as prescribed. Medication should not be changed or stopped without the approval of your doctor. In the event of worsening symptoms or concerns about side effects, contact your doctor immediately. 3. Utilize new healthy coping skills, anger management skills, and stress management skills learned during your hospitalization. Journal feelings and process them with a support person. Identify stressors or situations that may result in relapse, deterioration or inappropriate behaviors and develop a plan to deal with those issues. 4. If your coping skills are ineffective and you are in crisis, contact your outpatient providers for direction. If unable to reach your providers, please call the CAN HELP LINE AT or go to the closest Emergency Room. 5. Avoid alcohol and un-prescribed drugs. 6. You have been provided with the Mental Health Advance Directives Pamphlet for your review. AFTERCARE APPOINTMENTS: * Please call your insurance company prior to your scheduled appointment to confirm your aftercare providers are covered. Take your insurance information to your appointments. . Discharge / Aftercare Planning Primary Care Physician: Name: Dr. Burrell Appointment Notes: As needed Psychiatrist: Name: Dr. Hernandez Date of Appointment: Sep 27, 2017 Time of Appointment: 11:45 Appointment Notes: [address], [place] [address] Therapist: Name Of Therapist: [facility], will be scheduled after your appt on 09/27 Appointment Comments: [address], [place] [address] Credit Collection Specialist: Name: BEAR Vines Appointment Notes: They will call you directly to schedule . Follow-Up Care Plan for Follow-Up Care: Patient was given a limited supply of as needed medications. Seroquel was increased slightly at discharge for ease of discharge Current Hospital Diet Patient's current hospital diet: Regular Diet Discharge Diet Recommended Diet: Regular Diet Procedures Procedures Performed: No Pending Studies Pending Studies at Discharge: No Medical Emergencies . Who to Call and When: Medical Emergencies: For questions or emergencies related to your hospital stay, please contact the Inpatient Behavioral Health Unit at [phone]. A central office frame wirer is on-call 08/01 for the Behavioral Health Unit for emergencies At any time you feel your situation is an emergency, you may also call 911 immediately. . Non-Emergent Contact Non-Emergency issues call your: Primary Care Provider, Psychiatrist Advance Directives Existing Advance Directive: No Do You Have an Existing Mental: No Existing Living Will: No Existing Power of County Tax Assessor: No Advance Directives Info Given: To Pt/S.O. Advance Directives Reason: Declines as Mental Health Visit. Discharge Summary Admission HPI Per the Admitting provider: Patient seen for admission, chart reviewed; she is known to me from previous admissions and recent consultation on the medical service prior to transfer to the behavioral health unit. Per initial assessment by MARQUITA Ojeda: The patient is a 31-year-old woman who initially presented to the emergency department with alcohol withdrawal. She admitted to have been drinking 1/5 of vodka a day. She was admitted medically for detox where she remained for 5 days. She was medically cleared for mental health treatment yesterday and after having been declined by Shelley Najera, she was admitted to our unit voluntarily last evening. The patient has multiple stressors in her life. Her primary stress is that BFV-1-cyoj-old daughter who had been in foster care, was permanently adopted at about 3 months ago and all parental ties severed. She has a 7-year-old son who is in the custody of his father. She has been homeless , [facility] and most recently sleeping on the couch of a friend. Over the course of years, she has had many losses in her life including having found both parents and having lost other friends from overdoses. All of these losses have led her to believe that she has PTSD and now describes herself as a "complete isolator". She avoids allowing people to get close to her for fear she will lose them as well. She admits that several weeks ago, she made a suicide attempt by taking a handful of doxepin with alcohol. She reports that her roommate found her laying on the floor, neither of them brought the overdose to medical or psychiatric attention. She is not currently in any psychiatric care and describes that in recent weeks her mood has been "all over the place". She reports that she continues to have suicidal thinking "here and there". She reports a difficult sleep, getting only 2-3 hours per night, frequently waking with nightmares, crying and screaming. She reports impaired appetite having lost at least 5 pounds in the last month. Her anxiety is described as "terrible" with panic attacks occur about twice per week and are triggered by "anything". She notes that she avoids crowds, for example going to stores were there will be large numbers of people, "I hate it". She denies any clear symptoms of bipolar disorder saying that she will have about 1 day per month where she thinks "I can do this" but denies discrete episodes of euphoric mood, sleeplessness or pleasure seeking behaviors. On my assessment, the patient states that she is feeling very anxious, "I do not know what to do with myself." She recognizes that this is in large part due to recent sobriety, stating that she typically drinks heavily to deal with these feelings. She further admits to poor compliance with mental health treatment, having been off of medications for months, and not in therapy. She is refusing recommendations for inpatient rehab to address her severe substance abuse, feeling that she needs instead an individual therapist to work on what she believes is PTSD from multiple losses. Admission Exam Per the Admitting provider: The patient presented as alert and cooperative. The patient was casually dressed and groomed. Eye contact was fair. No psychomotor restlessness or agitation was noted. Speech was normal in rate, rhythm, and volume. Affect was mood congruent. The patients mood appeared euthymic. Describes mood as "pretty good" and rates mood a 8/10. Thought processes were clear, coherent and goal directed without evidence of loose associations or flight of ideas. Thought content/perception was reality based without delusions. The patient denied suicidal and homicidal ideation. The patient denied hallucinations and did not appear to be responding to internal stimuli. Cognition was grossly intact with orientation to person, place and time. Fund of Knowledge/ Intelligence were consistent with level of education. Insight and Judgement were limited. Hospital Course (1) Persistent mood [affective] disorder, unspecified 09/19/17 - Restart Effexor XR 75 mg. daily. Does not get a history that clearly supports bipolar disorder, and difficult to make that diagnosis given the chronic and severe substance abuse and likely personality component. - Vistaril prn sleep or anxiety - Will continue Seroquel 50 mg. q4h prn for now but have encouraged her to work toward healthy behavioral coping strategies - Q 15 min checks for safety - Encourage participation in group and individual counseling - Will need psychiatric follow up - Assist the patient to learn and utilize healthy coping strategies -Doxepin discontinued due to overdose, and will coordinate care with her PCP , Dr. Burrell in [place], to review suicide risk and med recommendations. 09/20 - Move Effexor XR 75 mg. to HS starting tonigh (will get total 150 mg today) - Remind patient to focus on her own treatment 09/21 - One-time dose of Effexor 150mg given today; start 150mg qAM tomorrow morning - Encouraged distraction techniques for restfulness, prn Vistaril as needed 09/22 - (late entry) Continue current meds and treatment plan 09/23 - discharge to home today. Follow up with outpatient provides and services. (2) Alcohol dependence 09/19/17 - Recovery protocol - Recommend inpatient rehab which the patient is refusing. Therefore recommend OP treatment and AA 90 in -Consider naltrexone, which was recently prescribed by her PCP - The patient's AUDIT score suggests problematic drinking (Zone III WHO). Brief intervention was offered and accepted Intervention (if performed) was greater than 5 min in length. Brief interventions include: 1. Assess Readiness to Quit, 2. Advise: Help Patient to Reduce or Abstain from Alcohol, 3. Agree: Set Specific, Feasible Goals, 4. Assist: Anticipate barriers, Problem-Solving Solutions. Social work to 5. Arrange: Referrals to appropriate treatment. Summary of intervention: The patient is in contemplation stage with regards to transtheoretical model of change. The patient is advised to decrease alcohol consumption due to depressant effects and risk of interactions with prescription medications. The patient agreed to outpatient treatment but no inpatient rehab and will be provided with recovery materials to continue to education self on how to cope with their condition without drinking. 09/20 - Still refusing rehab - Naltrexone is nonformulary, so will defer to outpatient 09/22 - does not want rehab. Feels "institutionalized helps her best" in context of incarceration. (3) Tobacco abuse 09/19/17 - Recommend she consider quitting, or at least cutting back - Will provide Nicotine patch 21 mg daily for cravings Risk Factors Assessment : Yes /single/: Yes Higher / Fall in social status: No Access to guns: No Health problems: Yes Mental Health Diagnoses: Yes Substance use disorders: Yes Previous attempt: Yes Previous attempt;highly lethal: Yes Previous attempt; didn't tell: Yes Family history of suicide: No Previous psychiatric stay: Yes Hopelessness: Yes Smoker: Yes Protective Factors Assessment Rastafari beliefs: No : No Responsible for young children: No Employed: No Stable relationships: No Supportive family: No Good rapport with provider: No Absence of risk factors above: No Day of Discharge Assessment The patient reports improved mood and tolerable levels of anxiety. She is mood stable. She denies SI/HI plan or intent. She is future goal directed. She is still with concerns over custody issues involving her daughter and the adoptive parents but reports understanding that the courts will decide this issue and that it is important that she maintain stability with regards to behaviors especially ETOH use given the DUI #4. She is aware that she has an upcoming court date and that she may spend time in correction. She reports looking forward to time in correction as life is much easier for her as she has little stress, no financial concerns and is in a structured environs which for her, allows less anxiety about her day. She is planning to return home to her apartment and also return to work. She is aware of the need to follow up with all outpatient scheduled providers for mental health and physical health concerns. She is aware of the need to be medication complaint and is aware to avoid the use of alcohol while on medications. Laboratory Test 09/21/17 07:25 Fasting Glucose 84 Triglycerides Level 55 Cholesterol Level 136 HDL Cholesterol 68 LDL Cholesterol, Calculated 57 VLDL Cholesterol, Calculated 11 Cholesterol/HDL Ratio 2.0 Total Time Total Time Spent (min): Greater than 30 minutes Total Time Included: examination of the patient, discharge planning, medication reconciliation, communication with other providers Tobacco Cessation at Discharge Smoking Status: Current Every Day Smoker (1 pack per day) FDA approved Prescription: declined med & out pt counseling (States "I'm smoking as soon as I get out")
[2017-09-23] MEDS ORDERED: ATR25 PO (10:32)
[2017-09-23] MEDS ORDERED: HYDRPOW37 PO (10:32)
[2017-09-23] MEDS ORDERED: EFFSR150 PO (10:32)
[2017-09-23] MEDS ORDERED: QUET-115 PO (10:32)
[2017-09-23] MEDS: hydrOXYzine HCL 25 MG TAB PO PRN (10:34)
--- NOTE | 2017-09-23 11:29 | Psych Management Progress Note ---
Psychiatry Miscellaneous Date of Service: Sep 23, 2017. Patient seen, MS assessed. Rates mood as improved and voices readiness for discharge. I was personally involved in the medical decision making around her discharge.
== END 2017-09-23 13:22 | disposition home or self-care (01) | DRG 885 ==
LOC: C.MHU 23:08
PROVIDERS: ADMIT Student in an Organized Health Care Education/Training Program; ATTEND Psychiatry & Neurology Psychiatry
DX: F34.9 Persistent mood [affective] disorder, unspecified (principal); R45.851 Suicidal ideations; F32.9 Major depressive disorder, single episode, unspecified; F10.20 Alcohol dependence, uncomplicated; F17.200 Nicotine dependence, unspecified, uncomplicated; Z59.0 Homelessness; F11.11 Opioid abuse, in remission; F14.11 Cocaine abuse, in remission; F12.11 Cannabis abuse, in remission; Z88.8 Allergy status to other drugs, medicaments and biological substances; Z72.89 Other problems related to lifestyle; Z83.3 Family history of diabetes mellitus; Z80.9 Family history of malignant neoplasm, unspecified; Z84.89 Family history of other specified conditions